=== PATIENT | female | born 1990 | race Asian ===

== ENCOUNTER 2024-01-04 10:11 | Outpatient (AMB) | payer OTHER, SELFPAY ==
[2024-01-04 10:38] VITALS: BP 126/80; PULSE 82; O2SAT 99; BMI 41.1
--- NOTE | 2024-01-04 10:38 | MHC.PC.OV ---
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 Pt states that her last PE was about 2 years ago. Pt has FACILITIES OFFICER at [facility] and her last pap was 2 months ago. Allergies No Known Allergies Allergy (Verified 01/04/24 11:00) Medication List - Last Reconciled 01/04/24 by Alisha Fay MD albuterol sulfate 90 mcg/actuation (ProAir RespiClick) 1 inh inhalation Q4-6H PRN cetirizine (All Day Allergy (cetirizine)) 10 mg PO DAILY PRN clobetasol 0.05% 1 appl topical DAILY PRN levothyroxine 25 mcg PO DAILY meclizine 12.5 mg PO BID-QID PRN metformin ER 1,000 mg PO DAILY [mingo and D chiro with Inositol w/MTHF Folate +Vitamin D3 4x capsules ] [miguel sleep PO PRN] omeprazole 20 mg PO DAILY sertraline 25 mg PO DAILY Tobacco use date assessed: 01/04/24 Dental Screening Dental Screen Date: 01/04/24 Did you have a dental visit in the last 12 months?: Yes Did you have a dental problem in the last 6 months where you did not have access to dental care?: No Was dental information given to patient?: Patient has dentist HPI 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 Currently being seen at [facility], fertility specialist for routine Pap and pelvic exam and has been followed at [facility] , Dr Raina Bro , in [place] Has been diagnosed to have prediabetes and acquired hypothyroidism, currently on metformin ER a 1000 mg once a day, and levothyroxine 25 mcg once a day in a.m. She has mild intermittent asthma, rarely needing to use her albuterol inhaler, Has eczema mainly in ankles bilaterally and hands, takes cetirizine as needed Has heartburn symptoms, takes omeprazole as needed Has generalized anxiety disorder, takes sertraline 25 mg once a day which has been helping, has been on it for a year Had her flu vaccine already given at [facility] this year [facility] Medical History (Updated 01/11/24 @ 00:16 by Alisha Fay MD) Morbid obesity with BMI of 40.0-44.9, adult PCOS (polycystic ovarian syndrome) Eczema Mild intermittent asthma History of vitamin D deficiency Impaired fasting glucose Hypothyroidism Surgical History No pertinent past surgical history Family History Father No problems noted. Mother No problems noted. Social History Housing: Apartment Patient Tobacco Use Status: Never used Tobacco e-Cigarette/Vaping Use: Never Used service: No Current occupational status: employed and unemployed Cognitive needs: No Hearing needs: No Vision needs: No Female Reproductive History Menstrual Other: Currently and sees fertility specialist in [facility] in [place]. Questionnaire PHQ-9 Over the last 2 weeks, how often have you been bothered by any of the following problems? 1. Little interest or pleasure in doing things: not at all 2. Feeling down, depressed, or hopeless: not at all 3. Trouble falling or staying asleep, or sleeping too much: not at all 4. Feeling tired or having little energy: not at all 5. Poor appetite or overeating: not at all 6. Feeling bad about yourself - or that you are a failure or have let yourself or your family down: not at all 7. Trouble concentrating on things, such as reading the newspaper or watching television: not at all 8. Moving or speaking so slowly that other people could have noticed. Or the opposite - being so fidgety or restless that you have been moving around a lot more than usual: not at all 9. Thoughts that you would be better off or of hurting yourself in some way: not at all Total score: 0 Depression Screening Interpretation: Negative Depression Screening Done: Yes 19655 - PHQ-9 Billing: Yes Source: Developed by Drs. Ari Woody, Karol Forrester, Jose Bee and colleagues, with an educational maria luisa from [employer] Thrive Questionnaire Date Thrive assessed: 01/04/24 I am a: Patient What is your living situation today?: I have a steady place to live Within the past 12 months, did the food you bought not last and you didn't have the money to get more?: I choose not to answer this question Within the past 12 months, did you worry whether your food would run out before you got money to buy more?: Never true Do you have trouble paying for medicines?: No Do you have trouble getting transportation to medical appointments?: No Do you have trouble paying your heating and electricity bill?: No Do you have trouble taking care of your child, family member or friend?: No Do you have trouble with day-to-day activities such as bathing, preparing meals, shopping, managing finances, etc.?: No Are you currently unemployed and looking for a job?: I choose not to answer this question Are you interested in more education?: I choose not to answer this question Please select the resources that you would like help with: None Currently or been in a relationship where the following occur: No concerns reported THRIVE Score: 0 AUDIT C Alcohol Use Questionnaire (AUDIT-C) 1. How often do you have a drink containing alcohol?: Monthly or less 2. How many drinks containing alcohol do you have on a typical day when you are drinking?: 1 or 2 3. How often do you have six or more drinks on one occasion?: Never Total Score: 1 MARTHA-7 AMB Questionnaire MARTHA-7 Date MARTHA - 7 assessed: 01/04/24 Feeling nervous, anxious, or on edge: 0 = Not at all Not being able to stop or control worryin = Not at all Worrying too much about different things: 0 = Not at all Trouble relaxin = Not at all Being so restless that it is hard to sit still: 0 = Not at all Becoming easily annoyed or irritable: 0 = Not at all Feeling afraid as if something awful might happen: 0 = Not at all Total MARTHA-7 score (0-4 normal; 5-9 mild; 10-14 moderate; 15-21 severe): 0 Source: Developed by Drs. Ari Woody, Jose Lawson and colleagues, with an educational maria luisa from [employer] MARTHA-7 Assessment Billing MARTHA-7 Assessment Tool: MARTHA-7 Assessment 23648 Review of Systems Const Denies body aches, Denies fatigue, Denies fever(s), Denies headache(s) and Denies weakness Eyes Denies change in vision ENT Denies dizziness, Denies headache(s), Denies nasal congestion, Denies nasal discharge and Denies sore throat Card Denies chest pain, Denies lightheadedness, Denies palpitations and Denies dyspnea Resp Denies chest congestion, Denies cough, Denies dyspnea and Denies wheezing GI Denies abdominal pain, Denies change in bowel habits and Denies heartburn Denies hematuria, Denies urinary frequency, Denies dysuria and Denies urinary urgency Musc Reports no additional complaints Skin/Breast Denies breast pain, Denies breast mass, Denies lesions and Denies rash Neuro Denies dizziness, Denies headache(s) and Denies weakness Psych Reports no additional complaints Endo Denies fatigue, Denies polydipsia, Denies polyuria and Denies palpitations Jose Alberto/Lymph Denies easy bruising Aller/Immun Denies seasonal rhinorrhea and Denies wheezing Physical exam (Primary Care) Vital Signs: Last Vital Signs Pulse 82 01/04/24 10:38 BP 126/80 01/04/24 10:38 Pulse Ox 99 01/04/24 10:38 Oxygen Delivery Method Room Air 01/04/24 10:38 BMI result Body Mass Index 41.1 Tobacco/Smoking Status: Tobacco use Status Tobacco use date assessed 01/04/24 01/04/24 10:52 Patient Tobacco Use Status Never used Tobacco 01/04/24 10:52 e-Cigarette/Vaping Use Never Used 01/04/24 10:52 PHQ-9: PHQ-9 Score PHQ-9: Total score 0 01/04/24 11:35 Depression Screening Interpretation: Negative Thrive Assessment: Date of Thrive Assessment Date Thrive assessed 01/04/24 01/04/24 10:52 Currently or been in a relationship where the following occur: No concerns reported Const General: comfortable, no acute distress and alert Nutritional Appearance: obese Orientation/consciousness: patient oriented x3 Limitations: no limitations HENMT Ears: external ears normal, TM's normal bilaterally and EAC's normal General nose exam: Normal external nose present and No nasal discharge present Mouth: Normal oral and palatal mucosa present, oropharynx normal and moist mucous membranes Eyes General: appearance normal, both eyes and all related structures Conjunctivae: conjunctivae normal Sclerae: sclerae normal Pupils: Equal, round and reactive pupils present EOM: EOMs intact bilaterally Neck Neck: Yes full ROM, Yes no lymphadenopathy and Yes supple Resp Effort & Inspection: normal respiratory effort and able to speak in complete sentences Auscultation: clear to auscultation bilaterally Cardio Rate: regular rate Rhythm: regular rhythm Heart sounds: S1 normal heart sound present and S2 normal heart sound present GI Palpation (GI): Soft to palpation, nontender and no masses Auscultation: normal bowel sounds Back/Spine/Pelvis Back: No back tenderness Skin General skin exam: no rashes or lesions noted Neuro General: patient oriented x3, gait normal, tone normal, moves all extremities, Normal light touch and pain sensation and no focal motor deficits Cranial nerves: Yes CN's II-XII intact bilaterally and Yes Equal, round and reactive pupils present Cognition (Neuro): normal cognition Extrem General: Yes full ROM, Yes no joint enlargement, Yes no clubbing, cyanosis or edema and Yes no calf tenderness Psych Appearance: grossly normal and well kempt Mental Status: mental status grossly normal Speech and movement: Normal speech and movement present Affect: normal affect Attitude: cooperative Thought process: Normal thought process present Thought content: Normal thought content present, suicidality and no homicidality Immunizations pneumoc 20-kings conj-dip cr(PF) 0.5 mL IM syringe Performing Provider: Alisha Fay MD Performing Location: [facility] Administered by: JR Aburto on 01/04/24 11:35 Dose Route Admin Location Dispensed Lot Number Expiration Date [facility] Hand Expansion Envelope Maker 0.5 mL IM Left Deltoid 0.5 mL [id number] 03/01/25 [id number] [employer] VIS Given Date VIS Provided VIS Publication Date 01/04/24 Single Vaccine 21 Eligibility Eligibility Date Funding Source Not [facility] Eligible 01/04/24 Private Coding Level of Care Code New Pt Level 4 (11835) Complex EM visit Add On G2211 Diagnoses Acquired hypothyroidism E03.9 Hypothyroidism type: acquired Impaired fasting glucose R73.01 History of vitamin D deficiency Z86.39 Mild intermittent asthma J45.20 Eczema L30.9 PCOS (polycystic ovarian syndrome) E28.2 Amenorrhea, secondary N91.1 Morbid obesity with BMI of 40.0-44.9, adult E66.01; Z68.41 Additional Codes MARTHA-7 Assessment Billing - MARTHA-7 Assessment Tool: MARTHA-7 Assessment 00398 ([id number]) Assessment & Plan Assessment & Plan (1) Hypothyroidism: Code(s): E03.9 - Hypothyroidism, unspecified Category: Medical Qualifiers: Hypothyroidism type: acquired Qualified Code(s): E03.9 - Hypothyroidism, unspecified Plan: Currently on levothyroxine 25 mcg once a day, will repeat another TSH and free T4 level (2) Impaired fasting glucose: Code(s): R73.01 - Impaired fasting glucose Category: Medical Plan: Currently on metformin ER a 1000 mg 1 tablet once a day reinforced importance of following low carb diet and getting regular exercise. Weight loss recommended (3) History of vitamin D deficiency: Code(s): Z86.39 - Personal history of other endocrine, nutritional and metabolic disease Category: Medical Plan: Will check vitamin-D level, currently takes supplements of vitamin-D3, prescribed by her OB (4) Mild intermittent asthma: Code(s): J45.20 - Mild intermittent asthma, uncomplicated Category: Medical Plan: Rarely needing to use her inhaler, has albuterol inhaler (ProAir rescue) inhaler, up-to-date with her flu vaccine, Prevnar 20 given today (5) Eczema: Code(s): L30.9 - Dermatitis, unspecified Category: Medical Plan: Currently using clobetasol 0.05% cream once a day as needed, and takes cetirizine 10 mg once a day as needed (6) PCOS (polycystic ovarian syndrome): Code(s): E28.2 - Polycystic ovarian syndrome Category: Medical Plan: Currently sees Dr. Bro at [facility], on metformin ER 1000 mg daily (7) Amenorrhea, secondary: Code(s): N91.1 - Secondary amenorrhea Plan: Has not had her period come back after she stopped taking control pills last 01/2023. Currently being followed by rec productive specialist at [facility], Dr. Bro (8) Morbid obesity with BMI of 40.0-44.9, adult: Code(s): E66.01 - Morbid (severe) obesity due to excess calories; Z68.41 - Body mass index [BMI] 40.0-44.9, adult Category: Medical Plan: Previously on wegovy 0.25 mg injected once a week, stopped taking about 2 months ago, as she is actively trying to get . Patient states that she did not have any significant weight loss while taking it. Orders: Orders Hemoglobin A1c 01/04/24 E03.9 - Hypothyroidism, unspecified, E28.2 - Polycystic ovarian syndrome, J45.20 - Mild intermittent asthma, uncomplicated, L30.9 - Dermatitis, unspecified, R73.01 - Impaired fasting glucose, Z86.39 - Personal history of other endocrine, nutritional and metabolic disease Comprehensive [place]. Panel Fast 01/04/24 E03.9 - Hypothyroidism, unspecified, E28.2 - Polycystic ovarian syndrome, J45.20 - Mild intermittent asthma, uncomplicated, L30.9 - Dermatitis, unspecified, R73.01 - Impaired fasting glucose, Z86.39 - Personal history of other endocrine, nutritional and metabolic disease Lipid Panel 01/04/24 E03.9 - Hypothyroidism, unspecified, E28.2 - Polycystic ovarian syndrome, J45.20 - Mild intermittent asthma, uncomplicated, L30.9 - Dermatitis, unspecified, R73.01 - Impaired fasting glucose, Z86.39 - Personal history of other endocrine, nutritional and metabolic disease Vitamin D 25-OH Total 01/04/24 E03.9 - Hypothyroidism, unspecified, E28.2 - Polycystic ovarian syndrome, J45.20 - Mild intermittent asthma, uncomplicated, L30.9 - Dermatitis, unspecified, R73.01 - Impaired fasting glucose, Z86.39 - Personal history of other endocrine, nutritional and metabolic disease Thyroid Stimulating Hormone 01/04/24 E03.9 - Hypothyroidism, unspecified, E28.2 - Polycystic ovarian syndrome, J45.20 - Mild intermittent asthma, uncomplicated, L30.9 - Dermatitis, unspecified, R73.01 - Impaired fasting glucose, Z86.39 - Personal history of other endocrine, nutritional and metabolic disease Free T4 (Free Thyroxine) 01/04/24 E03.9 - Hypothyroidism, unspecified, E28.2 - Polycystic ovarian syndrome, J45.20 - Mild intermittent asthma, uncomplicated, L30.9 - Dermatitis, unspecified, R73.01 - Impaired fasting glucose, Z86.39 - Personal history of other endocrine, nutritional and metabolic disease Pneumococcal 20 Immunization 01/04/24 Z23 - Encounter for immunization
== END 2024-01-04 11:40 | disposition home or self-care (01) ==
LOC: HO.HMCC 10:12
PROVIDERS: PCP Internal Medicine; Visit Provider Internal Medicine
DX: E03.9 Hypothyroidism, unspecified (principal); R73.01 Impaired fasting glucose; Z86.39 Personal history of other endocrine, nutritional and metabolic disease; J45.20 Mild intermittent asthma, uncomplicated; L30.9 Dermatitis, unspecified; E28.2 Polycystic ovarian syndrome; N91.1 Secondary amenorrhea; E66.01 Morbid (severe) obesity due to excess calories; Z68.41 Body mass index [BMI] 40.0-44.9, adult

== ENCOUNTER → 2024-01-04 10:11 | Outpatient (BNVA) | payer OTHER, SELFPAY | PROVIDERS: PCP Internal Medicine; Visit Provider Internal Medicine | DX: E03.9 Hypothyroidism, unspecified (principal); R73.01 Impaired fasting glucose; J45.20 Mild intermittent asthma, uncomplicated; L30.9 Dermatitis, unspecified; E28.2 Polycystic ovarian syndrome; N91.1 Secondary amenorrhea; E66.01 Morbid (severe) obesity due to excess calories; Z68.41 Body mass index [BMI] 40.0-44.9, adult; Z86.39 Personal history of other endocrine, nutritional and metabolic disease; Z79.84 Long term (current) use of oral hypoglycemic drugs; Z79.899 Other long term (current) drug therapy; Z23 Encounter for immunization | CPT/HCPCS: 90471; 90677; 96127 ==

== ENCOUNTER 2024-04-07 08:57 | Outpatient (REF) | payer OTHER, SELFPAY ==
--- OUTSIDE RECORDS SUMMARY | 2024-04-07 09:11 | XMS_ITS | Encounter Summary ---
Author Organization [facility] Address [address] [place] [address] Care Team Providers Care Senior Project Architect Name Role Phone Trenton Duque MD Primary Care Provider [phone] Reason for Visit * Reason Comments Medication Refill Encounter Details Date Type Department Care Team (Late st Contact Info) Description 01/17/2021 Refill AYAAN WILSON [place] [address] [phone] Cecelia Davidson MD [address] [place] [address] Medication Refill Social History Tobacco Use Types Packs/Day Years Used Date Smoking Tobacco: Never Smokeless Tobacco: Never Alcohol Use Standard Drinks/Week Comments Yes 2 (1 standard drink = 0.6 oz pur e alcohol) PHQ-2 Answer Date Recorded PHQ-2 Total Score 0 09/13/2020 Comments Unknown Sex and Gender Information Value Date Recorded Sex Assigned at Female 11/13/2019 2:35 PM EDT Legal Sex Female 8:57 AM EDT Gender Identity Female 11/13/2019 2:35 PM EDT Sexual Orientation Straight 11/13/2019 2: 35 PM EDT documented as of this encounter Miscellaneous Notes * Telephone Encounter - Melita Lancaster RN - 01/17/2021 3:20 PM EST You have been prescribing this documented in this encounter Plan of Treatment Not on file documented as of this encounter Visit Diagnoses Not on filedocumented in this encounter Additional Health Concerns Assessment Noted Time PHQ-9 Depression Total Score: 0 09/14/19 21 9:35 AM EDT documented as of this encounter Care Teams Senior Project Architect Relationship Specialty Start Date End Date Trenton Duque MD [address] [facility] [address] [place] [phone] PCP - General Internal Medicine 11/10/19 04/07/22 documented as of this encounter
--- OUTSIDE RECORDS SUMMARY | 2024-04-07 09:11 | XMS_ITS | Encounter Summary ---
Author Organization [facility] Address [address] [place] [address] Care Team Providers Care Robotic Machine Tender Production Name Role Phone Trenton Duque MD Primary Care Provider [phone] Reason for Referral * Imaging (Routine) - Closed Specialty Diagnoses / Procedures Referred By Contac t Referred To Contact Diagnostic Radiology Procedures Non OB Transvaginal External, Provider Referral ID Status Reason Start Date Expiration Date Visits Re quested Visits Authorized [id number] Closed 12/12/2019 12/11/2020 1 1 Encounter Details Date Type Department Care Team (Late st Contact Info) Description 12/12/2019 Scanned Document [facility] Internal [facility] [address] [id number] External, Provider Social History Tobacco Use Types Packs/Day Years Used Date Smoking Tobacco: Never Assessed Comments Unknown Sex and Gender Information Value Date Recorded Sex Assigned at Female 11/13/2019 2:35 PM EDT Legal Sex Female 8:57 AM EDT Gender Identity Female 11/13/2019 2:35 PM EDT Sexual Orientation Straight 11/13/2019 2: 35 PM EDT COVID-19 Exposure Response Date Recorded In the last month, have you been in contact with someone who was confirmed or suspected to have Coronavirus / COVID-19? No / Unsure 11/14/2019 3:37 PM EDT documented as of this encounter Plan of Treatment Not on file documented as of this encounter Procedures Procedure Name Priority Date/Time Associated Diagnosis Comments NON OB TRANSVAGINAL Routine 12/12/2019 documented in this encounter Results * Non OB Transvaginal (12/12/2019) Anatomical Region Laterality Modality Pelvis, RCC Abdomen/Pelvis Ultra sound us Provider External IMG US ORDERABLES Final Result documented in this encounter Visit Diagnoses Not on filedocumented in this encounter Additional Health Concerns Infection Onset Date Last Indicated Resolved Time R/O COVID-19 03/16/2020 03/16/2020 03/19/2020 3:29 AM EST documented as of this encounter Care Teams Robotic Machine Tender Production Relationship Specialty Start Date End Date Trenton Duque MD [address] [address] PCP - General Internal Medicine 11/10/19 04/07/22 documented as of this encounter
--- OUTSIDE RECORDS SUMMARY | 2024-04-07 09:11 | XMS_ITS | Encounter Summary ---
Author Organization [facility] Address [address] [place] [address] Care Team Providers Care Collection Advisor Name Role Phone Trenton Duque MD Primary Care Provider [phone] Reason for Visit * Reason Comments Medication Refill Encounter Details Date Type Department Care Team (Late st Contact Info) Description 04/27/2020 Refill [facility] Internal Medicine [place] [address] [phone] Trenton Duque MD [address] [facility] [address] [place] [address] Medication Refill Social History Tobacco Use Types Packs/Day Years Used Date Smoking Tobacco: Never Smokeless Tobacco: Never Alcohol Use Standard Drinks/Week Comments Yes 2 (1 standard drink = 0.6 oz pur e alcohol) Comments Unknown Sex and Gender Information Value Date Recorded Sex Assigned at Female 11/13/2019 2:35 PM EDT Legal Sex Female 8:57 AM EDT Gender Identity Female 11/13/2019 2:35 PM EDT Sexual Orientation Straight 11/13/2019 2: 35 PM EDT documented as of this encounter Miscellaneous Notes * Telephone Encounter - Indira Rivas - 04/27/2020 8:20 AM EST Last visit 04/24/2020; appointment 05/2020 documented in this encounter Plan of Treatment Not on file documented as of this encounter Visit Diagnoses Not on filedocumented in this encounter Care Teams Collection Advisor Relationship Specialty Start Date End Date Trenton Duque MD [address] [facility] [address] [place] [phone] PCP - General Internal Medicine 11/10/19 04/07/22 documented as of this encounter
--- OUTSIDE RECORDS SUMMARY | 2024-04-07 09:11 | XMS_ITS | Clinical Summary ---
Author Organization [place] [facility] Address [address] [place] [address] Phone Care Team Providers Care Landfill Grader Name Role Phone Unavailable Primary Care Provider Unavailabl e Allergies No known active allergies Medications clobetasoL (TEMOVATE) 0.05 % ointment Apply topically as needed. Active ciclesonide (ALVESCO) 160 mcg/actuation inhaler Active ATOPICLAIR Crea APPLY 1 DOSE TOPICALLY 2 (TWO) TIMES DAILY. 100 g 2 Active PROAIR HFA 90 mcg/actuation HFA aerosol inhaler INHALE 1 PUFF INTO THE LUNGS EVERY 4 HOURS NEEDED FOR WHEEZING. 6.7 g 3 2 Active neomycin-polymy judi-hydrocortis one (CORTISPORIN) 3.5-10,000-1 mg/mL-unit/mL-% otic suspension 1 Active fluconazole (DIFLUCAN) 150 mg tablet TAKE 1 TABLET BY MOUTH ONCE. MAY TAKE 2ND PILL 2 DAYS LATER IF SYMPTOMS PERSIST 2 Active TRI-ESTARYLLA 0.18/0.215/0.25 mg-35 mcg (28) tablet TAKE 1 TABLET BY MOUTH EVERY DAY 84 tablet 4 Active Active Problems Problem Noted Date Diagnosed Date Obesity (BMI 30.0-34.9) 04/25/2020 Abnormality of hormone 04/03/2020 Overview (04/03/2020): High testosterone High estradiol High DHEAs- put on OCP- for f/u labs late apr 2020 Other specified hypothyroidism 11/10/2019 Asthma, unspecified asthma s everity, unspecified whether complicated, unspecified whether persistent 11/10/2019 Encounters Date Type Department Care Team Description 03/09/2024 Refill [facility] [place] [address] [place] [address] Cecelia Davidson MD Medication Refill 03/05/2024 Refill [facility] [place] [address] [place] [address] Cecelia Davidson MD Medication Refill from Last 3 Months Immunizations Name Administration Dates Next Due COVID-19 Vaccine - PFIZER 06/25/2020,06/04/2020 COVID-19, MODERNA 12Y+, 0.5 mL 01/16/2021 Influenza, MDCK, trivalent, injectable, preservative free 12/05/2023 Influenza, injectable, MDCK, quad, preservative free 01/11/2023 influenza, injectable, quadr ivalent, preservative free, pediatric 02/05/2022 Social History Tobacco Use Types Packs/Day Years Used Date Smoking Tobacco: Never Smokeless Tobacco: Never Tobacco Cessation:Counseling Given: Not Answered Alcohol Use Standard Drinks/Week Comments Yes 2 (1 standard drink = 0.6 oz pur e alcohol) PHQ-2 Answer Date Recorded PHQ-2 Total Score 0 10/16/2022 Comments Unknown Sex and Gender Information Value Date Recorded Sex Assigned at Female 11/13/2019 2:35 PM EDT Legal Sex Female 8:57 AM EDT Gender Identity Female 11/13/2019 2:35 PM EDT Sexual Orientation Straight 11/13/2019 2: 35 PM EDT Last Filed Vital Signs Vital Sign Reading Time Taken Comments Blood Pressure 112/68 10/16/2022 2:40 PM EDT Pulse 91 10/16/2022 2:40 PM EDT Temperature - - Respiratory Rate 18 10/16/2022 2:40 PM EDT Oxygen Saturation 99% 10/16/2022 2:40 PM EDT Inhaled Oxygen Concentration - - Weight 105.1 kg (231 lb 9.6 oz) 10/16/2022 2:40 PM EDT Height 160 cm (5' 3 ) 10/16/2022 2:40 PM EDT Body Mass Index 41.03 10/16/2022 2:40 PM EDT Plan of Treatment Health Maintenance Due Date Last Done Comments Pneumococcal Vaccine (1 of 2 - PCV) 1994 HIV screening 2001 Hepatitis C screening 2006 Tetanus adult (Td q 10,TDAP once) 2008 Covid-19 vaccine series ( season) 2023 01/16/2021, 06/25/2020, 06/04/2020 Cervical cancer screening 10/17/20272022, 05/23/2021, 12/26/2019, Additional history exists RSV Discussion (1 - 1-dose 75+ series) 06/27/2063 Influenza vaccine Completed 12/05/2023, , 02/05/2022 Meningococcal Vaccine Aged Out No kirt lalit eligible based on patient's age to complete this topic Procedures Procedure Name Priority Date/Time Associated Diagnosis Comments CYTOLOGY CONTINUOUS VULCANIZING MACHINE OPERATOR CASES (GH LMW) Routine 10/16/2022 3:07 PM EDT Well woman exam with routine gynecological exam from Last 3 Months or Most Recently Relevant to Health Maintenance Results * Cytology Electromagnet Crane Operator (GH LMW) (10/16/2022 3:07 PM EDT) Case Report Cytology Electromagnet Crane Operator ?Case: [id number] ? Authorizing Provider: ??Cecelia Davidson MD ?? Collected: ? 10/16/2022 03:07 PM ? Ordering Location: ? [facility] ? Received: ?10/17/2022 11:08 AM ? First Screen: ?Suly Brooke [place] ? (ASCP) ? Specimen: ?SurePath Pap Test, Cervix/Endocervix ? 3 7:15 AM [facility] Specimen Source Cervix/Endocervix 3 7:15 AM [facility] Specimen Adequacy Satisfactory. Endocervical transformation zone component is not identified. 3 7:15 AM [facility] Interpretation Negative for intraepithelial lesion or malignancy. 3 7:15 AM [facility] This electronic signature indicates that the pathologist has personally reviewed the available gross and/or microscopic material and has based the diagnosis on that review. 3 7:15 AM [facility] Clinical History Routine 10/22/19 2 3 7:15 AM [facility] Plant Safety Engineer Signature Suly Brooke CT (ASCP) 3 7:15 AM [facility] Pap and HPV Result History [id number]: Negative for intraepithelial lesion or malignancy. HPV: [id number]: Not Detected 3 7:15 AM [facility] LMP 06/2022 3 7:15 AM EDT [facility] Specimen Processing Information SurePath specimen processed, slide stained and manually screened at this location. The Pap smear is a screening test designed to aid in the detection of premalignant and malignant conditions of the uterine cervix. It is not a diagnostic procedure and should not be used as the sole means of detecting cervical cancer. Both false-positive and false-negative reports do occur. 3 7:15 AM EDT [facility] Pathology Department [facility] PATHOLOG[facility] [address] [place] [address] Director: Erma Chow M.D. [place]: [id number] [place]: [id number] CLIA: [id number] 3 7:15 AM EDT [facility] PATHOLOGY Papanicolaou smear specimen (specimen) CERVIX UTERI STRUCTURE / Unknown 10/16/2022 3:07 PM EDT 10/17/2022 11:08 AM EDT us Cecelia Davidson MD PATHOLOGY/CYTOLOGY ORDERA BLES Final Result [facility] DEPARTMENT OF PATHOLOGY [address] [place] [address], [facility] [phone] from Last 3 Months or Most Recently Relevant to Health Maintenance Insurance MEDICAID [place] * Guarantor: Julia Salazar Account Type Relation to Patient Date of Phone Billing Address Personal/Family Self 1990 [address] [place] [address] [place] * Guarantor: Julia Salazar Account Type Relation to Patient Date of Phone Billing Address Personal/Family Self 1990 [address] [place] [address] [place]
--- OUTSIDE RECORDS SUMMARY | 2024-04-07 09:11 | XMS_ITS | Encounter Summary ---
Author Organization [facility] Address [address] [place] [address] Care Team Providers Care Electric Motor Assembler And Tester Name Role Phone Trenton Duque MD Primary Care Provider [phone] [phone] Reason for Visit * Reason Onset Date Comments Medication Refill 09/19/2020 Encounter Details Date Type Department Care Team (Late st Contact Info) Description 09/19/2020 Refill [facility] Internal Medicine [place] [address] [place], [place] [phone] Trenton Duque MD [address] [facility] [address] [place] [address] Medication Refill Social History Tobacco [...] documented as of this encounter Care Teams Electric Motor Assembler And Tester Relationship Specialty Start Date End Date Trenton Duque MD [address] [facility] [address] [place] [address] PCP - General Internal Medicine 11/10/19 04/07/22 documented as of this encounter
--- OUTSIDE RECORDS SUMMARY | 2024-04-07 09:11 | XMS_ITS | Encounter Summary ---
Author Organization [facility] Address [address] [place] [phone] Care Team Providers Care Risk Developer Name Role Phone Unavailable Primary Care Provider Unavailabl e Reason for Visit * Reason Onset Date Comments Medication Refill 05/02/2022 Encounter Details Date Type Department Care Team (Late st Contact Info) Description 05/02/2022 Refill [facility] [place] [address] [place] [phone] Cecelia Davidson MD [address] [place] [address] Medication Refill Social History Tobacco [...] encounter Miscellaneous Notes * Telephone Encounter - Cecelia Davidson MD - 05/03/2022 2:31 PM EST Didn't write Rx. Has not been seen in awhile documented in this encounter Plan of Treatment Not on file documented as of this encounter Visit Diagnoses Not on filedocumented in this encounter Additional Health Concerns Assessment Noted Time PHQ-9 Depression Total Score: 0 09/14/19 21 9:35 AM EDT documented as of this encounter
--- OUTSIDE RECORDS SUMMARY | 2024-04-07 09:11 | XMS_ITS | Encounter Summary ---
Author Organization [facility] Address [address] [place] [address] Care Team Providers Care Construction Recruiter Name Role Phone Trenton Duque MD Primary Care Provider +1 [phone] Reason for Visit * Reason Comments Medication Refill Encounter Details Date Type Department Care Team (Late st Contact Info) Description 03/13/2020 Refill [facility] Internal Medicine [place] [address] [place] [address] [place] [address] [place] [phone] Trenton Duque MD [address] [place] [address] [place] [address] Medication Refill Social History Tobacco [...] * Telephone Encounter - Indira Rivas - 03/13/2020 8:29 AM EST Last visit 12/15/2019; appointment 03/29/2020 documented in this encounter Plan of Treatment Not on file documented as of this encounter Visit Diagnoses Not on filedocumented in this encounter Additional Health Concerns Infection Onset Date Last Indicated Resolved Time R/O COVID-19 03/16/2020 03/16/2020 03/19/2020 3:29 AM EST documented as of this encounter Care Teams Construction Recruiter Relationship Specialty Start Date End Date Trenton Duque MD [address] [place] [facility] 100 [place] [phone] PCP - General Internal Medicine 11/10/19 04/07/22 documented as of this encounter
--- OUTSIDE RECORDS SUMMARY | 2024-04-07 09:11 | XMS_ITS | Encounter Summary ---
Author Organization [facility] Address [address] [place] [address] Care Team Providers Care Configuration Management Consultant Name Role Phone Trenton Duque MD Primary Care Provider [phone] [phone] Reason for Visit * Reason Comments Medication Refill Encounter Details Date Type Department Care Team (Late st Contact Info) Description 01/18/2021 Refill [facility] Internal Medicine [place] [address] [place], [place] [phone] Trenton Duque MD [address] [place] [address] [place] [address] Medication Refill Social History Tobacco [...] encounter Miscellaneous Notes * Telephone Encounter - Dena Fairchild - 01/18/2021 7:37 AM EST Message from the University Extension Specialist - MEDICATION REFILLS Time of Call: 7:37 AM Confirmed w/ Patient Preferred Pharmacy: [id number] [place], [place] - [address] [facility] Last office visit: 09/10/2020 Next office visit: Visit date not found Please give us 24 hours to respond to your request. Patient was reminded to contact their preferred pharmacy for further electronic refills. Patient was encouraged to set up a [employer] account to request electronic refills in the future. Forward this message to LIN Spangler. documented in this encounter Plan of Treatment Not on file documented as of this encounter Visit Diagnoses Diagnosis Pain of lower extremity, unspecified laterality Back pain, unspecified back location, unspecified back pain laterality, unspecified chronicity documented in this encounter Additional Health Concerns Assessment Noted Time PHQ-9 Depression Total Score: 0 09/14/19 21 9:35 AM EDT documented as of this encounter Care Teams Configuration Management Consultant Relationship Specialty Start Date End Date Trenton Duque MD [address] [facility] 100 [place] [phone] PCP - General Internal Medicine 11/10/19 04/07/22 documented as of this encounter
--- OUTSIDE RECORDS SUMMARY | 2024-04-07 09:11 | XMS_ITS | Encounter Summary ---
Author Organization [facility] Address [address] [place] [address] Care Team Providers Care Accounting Coordinator Name Role Phone Trenton Duque MD Primary Care Provider [phone] [phone] Reason for Visit * Reason Comments Medication Refill Encounter Details Date Type Department Care Team (Late st Contact Info) Description 04/04/2020 Refill [place] [facility] [place] [address] [place] [address] Cecelia Davidson MD [address] [place] [address] Medication Refill Social History Tobacco [...] on filedocumented in this encounter Care Teams Accounting Coordinator Relationship Specialty Start Date End Date Trenton Duque MD [address] [facility] 100 [place] [address] PCP - General Internal Medicine 11/10/19 04/07/22 documented as of this encounter
--- OUTSIDE RECORDS SUMMARY | 2024-04-07 09:11 | XMS_ITS | Encounter Summary ---
Author Organization [facility] Address [address] [place] [address] Care Team Providers Care Crossbow Maker Name Role Phone Trenton Duque MD Primary Care Provider [phone] [phone] Reason for Visit * Reason Onset Date Comments Medication Refill 09/19/2020 Encounter Details Date Type Department Care Team (Late st Contact Info) Description 09/19/2020 Refill [place] [facility] [place] [address] [place] [phone] Cecelia Davidson MD [address] [place] [address] Medication Refill Social History Tobacco [...] documented as of this encounter Care Teams Crossbow Maker Relationship Specialty Start Date End Date Trenton Duque MD [address] [facility] [address] [place] [phone] PCP - General Internal Medicine 11/10/19 04/07/22 documented as of this encounter
--- OUTSIDE RECORDS SUMMARY | 2024-04-07 09:11 | XMS_ITS | Encounter Summary ---
Author Organization [facility] Address [address] [place] [address] Care Team Providers Care Beekeeper Farmer Name Role Phone Unavailable Primary Care Provider Unavailabl e Reason for Visit * Reason Comments Medication Refill Encounter Details Date Type Department Care Team (Late st Contact Info) Description 12/30/2022 Refill [facility] Internal Medicine [place] [address] [place] [address] Trenton Duque MD [address] [facility] 100 [place] [address] Medication Refill Social History Tobacco Use Types [...] Noted Time PHQ-9 Depression Total Score: 0 10/17/19 23 2:43 PM EDT documented as of this encounter
--- OUTSIDE RECORDS SUMMARY | 2024-04-07 09:11 | XMS_ITS | Encounter Summary ---
Author Organization [facility] Address [address] [place] [address] Care Team Providers Care Wet Pan Operator Name Role Phone Unavailable Primary Care Provider Unavailabl e Reason for Visit * Reason Comments Medication Refill Encounter Details Date Type Department Care Team (Late st Contact Info) Description 03/09/2024 Refill NE OBGYN [place] [address] [place], [place] [phone] Cecelia Davidson MD [address] [place] [address] Medication Refill Social History Tobacco Use Types [...] Telephone Encounter - Cecelia Davidson MD - 03/09/2024 12:40 PM EST Last seen 10/22. Was told 12/23 needs appt none sched documented in this encounter Plan of Treatment Not on file documented as of this encounter Visit Diagnoses Not on filedocumented in this encounter Additional Health Concerns Assessment Noted Time PHQ-9 Depression Total Score: 0 10/17/19 23 2:43 PM EDT documented as of this encounter
--- OUTSIDE RECORDS SUMMARY | 2024-04-07 09:11 | XMS_ITS | Encounter Summary ---
Author Organization [facility] Address [address] [place] [address] Care Team Providers Care Terrazzo Layer Name Role Phone Trenton Duque MD Primary Care Provider +1 [phone] Encounter Details Date Type Department Care Team (Latest Contact Info) Description 09/13/2020 Transcribed Orders [facility] [address] [place] [address] Cecelia Davidson MD [address] [place] [address] Routine general medical examination at a health care facility (Primary Dx) Social History Tobacco Use Types Packs/Day Years [...] on file documented as of this encounter Results * Testosterone free and total with SHBG (BH GH L LMW YH) (09/13/2020 5:45 PM EDT) Testosterone, Total 163 See Comment ng/dL 09/13/2020 8:05 PM [facility] DEPARTMENT OF PATHOLOGY Comment: Females: Premenopause: 21 - 60 Years Old ? 9 - 48 ng/dL Postmenopause: >=45 Years Old ?<7 - 46 ng/dL Sex Hormone Binding Globulin 69 See Comment nmol/L 09/13/2020 8:05 PM [facility] DEPARTMENT OF PATHOLOGY Comment: Females: Premenopause: 21 - 60 Years Old ? 11 - >180 nmol/L Postmenopause: >=45 Years Old ?23 - 159 nmol/L Free Testosterone Index 8.19 See Comment Index 09/13/2020 8:05 PM [facility] DEPARTMENT OF PATHOLOGY Comment: Females: Premenopause: 21 - 60 Years Old ?0.27 - 7.64 Index Postmenopause: >=45 Years Old ? 0.17 - 4.15 Index Blood Venipuncture / Unknown 09/13/2020 5:45 PM EDT 09/13/2020 5:46 PM EDT us Cecelia Davidson MD LAB BLOOD ORDERABLES Clarissa l Result [facility] DEPARTMENT OF PATHOLOGY [address] [place] [address] documented in this encounter Visit Diagnoses Diagnosis Routine general medical examination at a health care facility- Primary documented in this encounter Additional Health Concerns Assessment Noted Time PHQ-9 Depression Total Score: 0 09/14/19 9:35 AM EDT documented as of this encounter Care Teams Terrazzo Layer Relationship Specialty Start Date End Date Trenton Duque MD [address] [place] [address] [place] [address] PCP - General Internal Medicine 11/10/19 04/07/22 documented as of this encounter
--- OUTSIDE RECORDS SUMMARY | 2024-04-07 09:11 | XMS_ITS | Encounter Summary ---
Author Organization [facility] Address [address] [place] [address] Care Team Providers Care Ammonium Sulfate Operator Name Role Phone Trenton Duque MD Primary Care Provider +1 -[phone] Reason for Visit * Reason Comments Medication Refill Encounter Details Date Type Department Care Team (Late st Contact Info) Description 03/16/2021 Refill N[facility] Internal Medicine [place] [address] [place] [phone] Trenton Duque MD [address] [facility] 100 [place] [address] Medication Refill Social History Tobacco [...] documented as of this encounter Care Teams Ammonium Sulfate Operator Relationship Specialty Start Date End Date Trenton Duque MD [address] [facility] [address] [place] [phone] PCP - General Internal Medicine 11/10/19 04/07/22 documented as of this encounter
--- OUTSIDE RECORDS SUMMARY | 2024-04-07 09:11 | XMS_ITS | Encounter Summary ---
Author Organization [facility] Address [address] [place] [address] Care Team Providers Care Stars Coordinator Name Role Phone Trenton Duque MD Primary Care Provider +1 -[phone] Reason for Visit * Reason Onset Date Comments Medication Refill 12/19/2020 Encounter Details Date Type Department Care Team (Late st Contact Info) Description 12/19/2020 Refill [facility] Internal Medicine [place] [address] [place] [address] [place], [place] [phone] Trenton Duque MD [address] [facility] [facility] [address] [place] [address] Medication Refill Social History Tobacco [...] documented as of this encounter Care Teams Stars Coordinator Relationship Specialty Start Date End Date Trenton Duque MD [address] [facility] [address] [place] [address] PCP - General Internal Medicine 11/10/19 04/07/22 documented as of this encounter
--- OUTSIDE RECORDS SUMMARY | 2024-04-07 09:11 | XMS_ITS | Encounter Summary ---
Author Organization [facility] Address [address] [place] [phone] Care Team Providers Care Veterinary Science Teacher Name Role Phone Trenton Duque MD Primary Care Provider +1 -[phone] Encounter Details Date Type Department Care Team (Late st Contact Info) Description 03/16/2020 Lab Requisition [place] [facility] [address] [place] [address] Darian iY MD [address] [place] [phone] Encounter for screening for other viral diseases Social History Tobacco Use Types Packs/Day Years [...] Procedure Name Priority Date/Time Associated Diagnosis Comments SARS COV-2 (COVID-19) RNA-[facility] ([facility]) Routine 03/16/2020 8:55 PM EST Encounter for screening for other viral diseases documented in this encounter Results * SARS CoV-2 (COVID-19) [facility] (Healthcare Worker) (BH GH LMW YH) (03/16/2020 8:55 PM EST) SARS-CoV-2 Specimen Source Nasopharynx 03/19/2020 2:26 AM [facility] SARS-CoV-2 Patient Race Unknown 03/19/2020 2:26 AM [facility] SARS-CoV-2 Patient Ethnicity Unknown 03/19/2020 2:26 AM [facility] SARS-CoV-2 RNA [place] Undetected Undetected 03/19/2020 2:26 AM [facility] Comment: SARS-CoV-2 RNA absent. This result does not rule out COVID-19 in the patient, as the sensitivity of the test depends on the timing of the specimen collection and the quality of the specimen. Result should be correlated with patient's history and clinical presentation. SARS-CoV-2 Method Summary SEE COMMENTS 03/19/2020 2:26 AM [facility] Comment: PREETHI- This PCR test uses the preethi SARS-CoV-2 assay ([employer] and is performed on the preethi BalconyTV0 System. It has received Emergency Use Authorization (EUA) by the U.S. Food and Drug Administration. Performance characteristics were verified by [facility] in a manner consistent with CLIA requirements. Fact sheets for this Emergency Use Authorization (EUA) can be found at the following links: https://www.fda.gov/media/082943/download for Healthcare Providers https://www.fda.gov/media/757744/download for Patients Test Performed by: [facility] [place] [address] Summer Counselor: Robert Mata M.D. Ph.D.; CLIA# [id number] Viral NASOPHARYNGEAL STRUCTURE / Unknown 03/16/2020 8:55 PM EST 03/16/2020 8:55 PM EST Darian Yi MD MICROBIOLOGY - GENERAL ORD ERABLES Final Result [facility] documented in this encounter Visit Diagnoses Diagnosis Encounter for screening for other viral diseases documented in this encounter Additional Health Concerns Infection Onset Date Last Indicated Resolved Time R/O COVID-19 03/16/2020 03/16/2020 03/19/2020 3:29 AM EST documented as of this encounter Care Teams Veterinary Science Teacher Relationship Specialty Start Date End Date Trenton Duque MD [address] [facility] 100 [place] [phone] PCP - General Internal Medicine 11/10/19 04/07/22 documented as of this encounter
--- OUTSIDE RECORDS SUMMARY | 2024-04-07 09:11 | XMS_ITS | Encounter Summary ---
Author Organization [facility] Address [address] [place] [address] Care Team Providers Care Automation Engineer Name Role Phone Unavailable Primary Care Provider Unavailabl e Reason for Visit * Reason Onset Date Comments Medication Refill 05/02/2022 Encounter Details Date Type Department Care Team (Late st Contact Info) Description 05/02/2022 Refill [facility] Internal [facility] [place] [address] [place] [address] Trenton Duque MD [address] [facility] [address] [place] [phone] Medication Refill Social History Tobacco Use Types [...]
--- OUTSIDE RECORDS SUMMARY | 2024-04-07 09:11 | XMS_ITS | Encounter Summary ---
Author Organization [facility] Address [address] [place] [address] Care Team Providers Care Web Production Designer Name Role Phone Trenton Duque MD Primary Care Provider + [phone] Reason for Visit * Reason Comments Medication Refill Encounter Details Date Type Department Care Team (Late st Contact Info) Description 07/31/2020 Refill [facility] Internal Medicine [place] [address] [place] [phone] Trenton Duque MD [address] [address] Medication Refill Social History Tobacco Use [...] on filedocumented in this encounter Care Teams Web Production Designer Relationship Specialty Start Date End Date Trenton Duque MD [address] [place] [address] [place] [address] PCP - General Internal Medicine 11/10/19 04/07/22 documented as of this encounter
--- OUTSIDE RECORDS SUMMARY | 2024-04-07 09:11 | XMS_ITS | Encounter Summary ---
Author Organization [facility] Address [address] [place] [address] Care Team Providers Care Flatwork Feeder Name Role Phone Unavailable Primary Care Provider Unavailabl e Reason for Visit * Reason Comments Med Change Request Encounter Details Date Type Department Care Team (Late st Contact Info) Description 04/16/2023 Refill [facility] [place] [address] [place] [address] Cecelia Davidson MD [address] [place] [address] Med Change Request Social History Tobacco Use Types Packs/Day Years [...] Telephone Encounter - Cecelia Davidson MD - 12/11/2023 2:41 PM EDT I called in 3 mo of meds. Needs an annual appt. Please call pt to schedule annual. I can not call in more until she is seen * Telephone Encounter - Muriel Nails - 04/17/2023 1:55 PM EST Scanned documented in this encounter Plan of Treatment Not on file documented as of this encounter Visit Diagnoses Not on filedocumented in this encounter Additional Health Concerns Assessment Noted Time PHQ-9 Depression Total Score: 0 10/17/19 23 2:43 PM EDT documented as of this encounter
--- OUTSIDE RECORDS SUMMARY | 2024-04-07 09:11 | XMS_ITS | Encounter Summary ---
Author Organization [facility] Address [address] [place] [address] Care Team Providers Care Professor/Nurse Anesthetist Name Role Phone Trenton Duque MD Primary Care Provider [phone] [phone] Reason for Visit * Reason Comments Medication Refill Encounter Details Date Type Department Care Team (Late st Contact Info) Description 03/06/2020 Refill NE [facility] [place] [address] [place] [phone] Cecelia Davidson MD [address] [place] [address] Medication Refill Social History Tobacco [...] documented as of this encounter Care Teams Professor/Nurse Anesthetist Relationship Specialty Start Date End Date Trenton Duque MD [address] [facility] 100 [place] [address] PCP - General Internal Medicine 11/10/19 04/07/22 documented as of this encounter
--- OUTSIDE RECORDS SUMMARY | 2024-04-07 09:11 | XMS_ITS | Encounter Summary ---
Author Organization [facility] Address [address] [place] [address] Care Team Providers Care Women Nurse Name Role Phone Unavailable Primary Care Provider Unavailabl e Encounter Details Date Type Department Care Team (Late st Contact Info) Description 04/17/2023 Scanned Document NE OBN [place] [address] [place] [address] Cecelia Davidson MD [address] [place] [address] Social History Tobacco Use Types Packs/Day Years [...]
--- OUTSIDE RECORDS SUMMARY | 2024-04-07 09:11 | XMS_ITS | Encounter Summary ---
Author Organization [facility] Address [address] [place] [address] Care Team Providers Care Carbon Brusher Assembler Name Role Phone Trenton Duque MD Primary Care Provider [phone] [phone] Reason for Visit * Reason Comments Med Change Request Encounter Details Date Type Department Care Team (Late st Contact Info) Description 09/24/2021 Refill NE OBGYN [place] [address] [place] [address] Cecelia Davidson MD [address] [place] [address] Med Change Request Social History [...] documented as of this encounter Care Teams Carbon Brusher Assembler Relationship Specialty Start Date End Date Trenton Duque MD [address] [facility] [address] [place] [address] PCP - General Internal Medicine 11/10/19 04/07/22 documented as of this encounter
--- OUTSIDE RECORDS SUMMARY | 2024-04-07 09:11 | XMS_ITS | Encounter Summary ---
Author Organization [facility] Address [address] [place] [address] Care Team Providers Care Door Assembler Name Role Phone Trenton Duque MD Primary Care Provider [phone] [phone] Reason for Visit * Reason Comments Medication Refill Encounter Details Date Type Department Care Team (Late st Contact Info) Description 11/16/2020 Refill NE STEVE [place] [address] [place] [phone] eCcelia Davidson MD [address] [place] [phone] Medication Refill Social History Tobacco Use Types [...] documented as of this encounter Care Teams Door Assembler Relationship Specialty Start Date End Date Trenton Duque MD [address] [facility] [address] [place] [address] PCP - General Internal Medicine 11/10/19 04/07/22 documented as of this encounter
--- OUTSIDE RECORDS SUMMARY | 2024-04-07 09:11 | XMS_ITS ---
Author Name [facility] Organization Unknown History of Medication Use Medication Directions Dispensed Refills Start Date End Date Stat WegovyTakeNo date re cordedNo form recordedNo frequency recordedNo route recordedNo set duration recordedNo set duration amount recordedactiveNo dosage strength recordedNo dosage strength units of measure recorded active Problems Problem Status Onset Date Problem Type Date of Resoluti on Source Other asthma active ProblemAct [facility]_PHY SONE Pain in unspecified foot active 2023-06-12 Problem[address] [facility]_PHYSONE
--- OUTSIDE RECORDS SUMMARY | 2024-04-07 09:11 | XMS_ITS | Encounter Summary ---
Author Organization [facility] Address [address] [place] [address] Care Team Providers Care Auditing Clerk Name Role Phone Trenton Duque MD Primary Care Provider +1 [phone] Encounter Details Date Type Department Care Team (Late st Contact Info) Description 09/10/2020 Orders Only [facility] [address] [place] [address] Cecelia Davidson MD [address] [place] [address] Hypouricemia (Primary Dx) Social History Tobacco Use Types [...] documented as of this encounter Results * TSH Receptor binding antibody (TRAB) (BH GH LMW Q YH) (05/21/2021 1:59 PM EDT) Thyrotropin Receptor Ab <1.00 <=2.00 IU/L 05/25/2021 9:40 PM EDT [facility] Comment: This test was performed using the TRAb Antibody HI method which is standardized against the 1st International Standard 90/672 and is reported in International Units (IU/L). The reference range reported was established specifically for this test method. Test Performed at: [facility] [address] ??[id number] Nathan Slater M.D., Ph.D.,Director of Laboratories Blood Venipuncture / Unknown 05/21/2021 1:59 PM EDT 05/21/2021 1:59 PM EDT us Cecelia Davidson MD LAB BLOOD ORDERABLES Clarissa pedro Result [facility] documented in this encounter Visit Diagnoses Diagnosis Hypouricemia- Primary Other abnormal blood chemistry documented in this encounter Additional Health Concerns Assessment Noted Time PHQ-9 Depression Total Score: 0 09/11/19 21 12:02 PM EDT documented as of this encounter Care Teams Auditing Clerk Relationship Specialty Start Date End Date Trenton Duque MD [address] [facility] [address] [place] [phone] PCP - General Internal Medicine 11/10/19 04/07/22 documented as of this encounter
--- OUTSIDE RECORDS SUMMARY | 2024-04-07 09:11 | XMS_ITS | Encounter Summary ---
Author Organization [facility] Address [address] [place] [address] Care Team Providers Care Insurance Producer Name Role Phone Unavailable Primary Care Provider Unavailabl e Encounter Details Date Type Department Care Team (Late st Contact Info) Description 04/17/2023 Scanned Document NE OBN [place] [address] [place] [address] Cecelia Davidson MD [address] [place] [address] Social History Tobacco Use Types [...]
--- OUTSIDE RECORDS SUMMARY | 2024-04-07 09:11 | XMS_ITS | Encounter Summary ---
Author Organization [facility] Address [address] [place] [address] Care Team Providers Care Configuration Management Manager Name Role Phone Trenton Duque MD Primary Care Provider [phone] [phone] Reason for Visit * Reason Onset Date Comments Medication Refill 06/08/2020 Encounter Details Date Type Department Care Team (Late st Contact Info) Description 06/08/2020 Refill NE STEVE [place] [address] [place] [address] Cecelia Davidson MD [address] [place] [address] Medication Refill Social History Tobacco [...] on filedocumented in this encounter Care Teams Configuration Management Manager Relationship Specialty Start Date End Date Trenton Duque MD [address] [address] PCP - General Internal Medicine 11/10/19 04/07/22 documented as of this encounter
--- OUTSIDE RECORDS SUMMARY | 2024-04-07 09:11 | XMS_ITS | Encounter Summary ---
Author Organization [facility] Address [address] [place] [address] Care Team Providers Care Medical Laboratory Technical Officer Name Role Phone Trenton Duque MD Primary Care Provider + -[phone] Reason for Visit * Reason Comments Medication Refill Encounter Details Date Type Department Care Team (Late st Contact Info) Description 07/31/2020 Refill [facility] Internal Medicine [place] [address] [place] [phone] Trenton Duque MD [address] [address] Medication Refill Social History Tobacco [...] on filedocumented in this encounter Care Teams Medical Laboratory Technical Officer Relationship Specialty Start Date End Date Trenton Duque MD [address] [place] [address] PCP - General Internal Medicine 11/10/19 04/07/22 documented as of this encounter
--- OUTSIDE RECORDS SUMMARY | 2024-04-07 09:11 | XMS_ITS | Encounter Summary ---
Author Organization [facility] Address [address] [place] [address] Care Team Providers Care Marketing Sales Supervisor Name Role Phone Trenton Duque MD Primary Care Provider [phone] [phone] Reason for Visit * Reason Comments Medication Refill Encounter Details Date Type Department Care Team (Late st Contact Info) Description 07/11/2020 Refill NE STEVE [place] [address] [place] [address] Cecelia Davidson MD [address] [place] [address] Medication Refill Social History Tobacco [...] on filedocumented in this encounter Care Teams Marketing Sales Supervisor Relationship Specialty Start Date End Date Trenton Duque MD [address] [facility] [address] [place] [address] PCP - General Internal Medicine 11/10/19 04/07/22 documented as of this encounter
[2024-04-07 18:03] LABS: Estimated Average Glucose 128 mg/dL; Hemoglobin A1C 135.0504 umol/L; Hemoglobin A1c % 6.1 % (<6.0); Total Hemoglobin (HGBA1C) 3167.7095 umol/L
[2024-04-07 20:59] LABS: Alanine Aminotransferase 44 U/L (0-31); Albumin Level 4.1 g/dL (3.5-5.0); Alkaline Phosphatase 104 U/L (39-117); Anion Gap 15 (12-20); Aspartate Amino Transferase 37 U/L (5-31); Bilirubin Total 0.3 mg/dL (0.0-1.0); Blood Urea Nitrogen 14 mg/dL (9-16); Calcium 9.4 mg/dL (8.4-10.2); Carbon Dioxide 20 mmol/L (22-29); Chloride 108 mmol/L (96-108); Cholesterol 179 mg/dL (<200); Estimated Glomerular Filt Rate > 60; Free T4 (Free Thyroxine) 1.19 ng/dL (0.71-1.85); Glucose Fasting 93 mg/dL (60-99); HDL Cholesterol 36 mg/dL (>40); LDL Cholesterol Calculated 118 mg/dL (<100); Potassium 4.4 mmol/L (3.3-5.1); Sodium 139 mmol/L (135-145); Thyroid Stimulating Hormone 3.74 uIU/mL (0.32-4.0); Total Protein 8.3 g/dL (6.5-8.0); Triglycerides 126 mg/dL (<150); Vitamin D 25-OH Total 27.5 ng/mL (>30)
== END 2024-04-07 08:58 | disposition home or self-care (01) ==
LOC: HO.HKASLDS 08:57
PROVIDERS: Visit Provider Internal Medicine
DX: E03.9 Hypothyroidism, unspecified (principal); R73.01 Impaired fasting glucose; Z86.39 Personal history of other endocrine, nutritional and metabolic disease; J45.20 Mild intermittent asthma, uncomplicated; L30.9 Dermatitis, unspecified; E28.2 Polycystic ovarian syndrome
CPT/HCPCS: 36415; 80053; 80061; 82306; 83036; 84439; 84443

== ENCOUNTER 2024-04-11 10:02 | Outpatient (AMB) | payer OTHER, SELFPAY ==
[2024-04-11 10:13] VITALS: BP 122/70; PULSE 87; TEMP 36.7; O2SAT 97; BMI 40.5
--- NOTE | 2024-04-11 10:13 | A.OFFPC_ITS ---
Vital Signs 04/11/24 10:13 Height 5 ft 4 in Weight 236 lb BMI 40.5 BP 122/70 Blood Pressure Location Lt brachial Position Sitting Pulse 87 Pulse Source Pulse Oximeter Temp 98.0 F Temp Source Oral Pulse Oximetry (%) 97 Oxygen Delivery Method Room Air Intake Visit Reasons: Annual PE Intake Note: Pt is here today for her PE: last papsmear 10/20/23: Fertility doctor has her on Metformin Is last menstrual period known: Yes Last menstrual period: 04/09/24 Allergies No Known Allergies Allergy (Verified 04/18/24 01:45) Medication List - Last Reconciled 04/11/24 by Alisha Fay MD albuterol sulfate 90 mcg/actuation (ProAir RespiClick) 1 inh inhalation Q4-6H PRN cetirizine (All Day Allergy (cetirizine)) 10 mg PO DAILY PRN clobetasol 0.05% 1 appl topical DAILY PRN letrozole 7.5 mg PO DAILY levothyroxine 25 mcg PO DAILY meclizine 12.5 mg PO BID-QID PRN metformin ER 1,000 mg PO DAILY [mingo and D chiro with Inositol w/MTHF Folate +Vitamin D3 4x capsules ] omeprazole 20 mg PO DAILY PRN sertraline 25 mg PO DAILY Tobacco use date assessed: 01/04/24 Dental Screening Dental Screen Date: 01/04/24 HPI Annual PE HPI Details 33-year-old lady with past medical histo ry of hypothyroidism intermittent asthma, PCOS, eczema, morbid obesity and history of female infertility, here today for physical exam. She is currently being followed by [facility] in [facility] by Dr. Bro for treatment of infertility who has prescribed metformin for treatment of PCOS and is currently undergoing fertility treatment with Letrozole, now on her second cycle after the first unsuccessful attempt last . - She has a history of eczema managed clobetasol, asthma controlled with minimal use of albuterol inhaler, and hypothyroidism. - The patient's thyroid condition is rep ortedly well-managed - She has gastroesophageal reflux diseas e , take omeprazole as needed and is on sertraline 25 mg for depression and anxiety. - Vitamin D deficiency is present, with current supplementation that may require adjustment. -she is up-to-date with her cervical can cer screening, last done a year ago [facility] Medical History (Updated 04/18/24 @ 02:00 by Alisha Fay MD) Morbid obesity with BMI of 40.0-44.9, adult PCOS (polycystic ovarian syndrome) Eczema Mild intermittent asthma History of vitamin D deficiency Impaired fasting glucose Hypothyroidism Surgical History No pertinent past surgical history Family History Father No problems noted. Mother No problems noted. Social History Housing: Apartment Patient Tobacco Use Status: Never used Tobacco e-Cigarette/Vaping Use: Never Used service: No Current occupational status: employed and unemployed Cognitive needs: No Hearing needs: No Vision needs: No Female Reproductive History Menstrual Date of last menstrual period: 04/09/24 Questionnaire PHQ-9 Over the last 2 weeks, how often have you been bothered by any of the following problems? 1. Little interest or pleasure in doing things: not at all 2. Feeling down, depressed, or hopeless: not at all 3. Trouble falling or staying asleep, or sleeping too much: not at all 4. Feeling tired or having little energy: not at all 5. Poor appetite or overeating: not at all 6. Feeling bad about yourself - or that you are a failure or have let yourself or your family down: not at all 7. Trouble concentrating on things, such as reading the newspaper or watching television: not at all 8. Moving or speaking so slowly that other people could have noticed. Or the opposite - being so fidgety or restless that you have been moving around a lot more than usual: not at all 9. Thoughts that you would be better off or of hurting yourself in some way: not at all Total score: 0 Depression Screening Interpretation: Negative Depression Screening Done: Yes 98815 - PHQ-9 Billing: Yes Source: Developed by Drs. Ari Woody, Karol Forrester, Jose Bee and colleagues, with an educational maria luisa from [employer]. Thrive Questionnaire Date Thrive assessed: 04/08/24 I am a: Patient What is your living situation today?: I have a steady place to live Within the past 12 months, did the food you bought not last and you didn't have the money to get more?: Never true Within the past 12 months, did you worry whether your food would run out before you got money to buy more?: Never true Do you have trouble paying for medicines?: No Do you have trouble getting transportation to medical appointments?: No Do you have trouble paying your heating and electricity bill?: No Do you have trouble taking care of your child, family member or friend?: No Do you have trouble with day-to-day activities such as bathing, preparing meals, shopping, managing finances, etc.?: No Are you currently unemployed and looking for a job?: I choose not to answer this question Are you interested in more education?: No Please select the resources that you would like help with: None Currently or been in a relationship where the following occur: No concerns reported THRIVE Score: 0 AUDIT C Alcohol Use Questionnaire (AUDIT-C) 1. How often do you have a drink containing alcohol?: Monthly or less 2. How many drinks containing alcohol do you have on a typical day when you are drinking?: 1 or 2 3. How often do you have six or more drinks on one occasion?: Never Total Score: 1 MARTHA-7 AMB Questionnaire MARTHA-7 Date MARTHA - 7 assessed: 01/04/24 Feeling nervous, anxious, or on edge: 0 = Not at all Not being able to stop or control worryin = Not at all Worrying too much about different things: 1 = Several days Trouble relaxin = Not at all Being so restless that it is hard to sit still: 0 = Not at all Becoming easily annoyed or irritable: 0 = Not at all Feeling afraid as if something awful might happen: 0 = Not at all Total MARTHA-7 score (0-4 normal; 5-9 mild; 10-14 moderate; 15-21 severe): 1 Source: Developed by Drs. Ari Woody, Karol Forrester, Jose Bee and colleagues, with an educational maria luisa from [employer]. MARTHA-7 Assessment Billing MARTHA-7 Assessment Tool: MARTHA-7 Assessment 69652 Review of Systems Const Denies body aches, Denies fatigue, Denies fever(s), Denies headache(s) and Denies weakness Eyes Denies change in vision ENT Denies dizziness, Denies headache(s), Denies nasal congestion, Denies nasal discharge and Denies sore throat Card Denies chest pain, Denies lightheadedness, Denies palpitations and Denies dyspnea Resp Denies chest congestion, Denies cough, Denies dyspnea and Denies wheezing GI Denies abdominal pain and Denies change in bowel habits Denies hematuria, Denies urinary frequency, Denies dysuria and Denies urinary urgency Musc Reports no additional complaints Skin/Breast Denies breast pain, Denies breast mass, Denies lesions and Denies rash Neuro Denies dizziness, Denies headache(s) and Denies weakness Psych Reports no additional complaints Endo Denies fatigue, Denies polydipsia, Denies polyuria and Denies palpitations Jose Alberto/Lymph Denies easy bruising Aller/Immun Denies seasonal rhinorrhea and Denies wheezing Physical exam (Primary Care) Vital Signs: Last Vital Signs Temp 98.0 F 04/11/24 10:13 Pulse 87 04/11/24 10:13 BP 122/70 04/11/24 10:13 Pulse Ox 97 04/11/24 10:13 Oxygen Delivery Method Room Air 04/11/24 10:13 BMI result Body Mass Index 40.5 Tobacco/Smoking Status: Tobacco use Status Tobacco use date assessed 01/04/24 04/11/24 10:13 Patient Tobacco Use Status Never used Tobacco 04/11/24 10:13 e-Cigarette/Vaping Use Never Used 04/11/24 10:13 PHQ-9: PHQ-9 Score PHQ-9: Total score 0 04/11/24 11:03 Depression Screening Interpretation: Negative Thrive Assessment: Date of Thrive Assessment Date Thrive assessed 04/08/24 04/11/24 10:13 Currently or been in a relationship where the following occur: No concerns reported Advance Care Planning discussion: Completed/Scanned Date of discussion: 04/11/24 Who was present: Patient Forms completed: Health Care Proxy Time spent: 16-45 minutes Actual minutes spent: 3 Const General: no acute distress and alert Nutritional Appearance: obese Orientation/consciousness: patient oriented x3 HENMT Ears: external ears normal, TM's normal bilaterally and EAC's normal General nose exam: Normal external nose present and No nasal discharge present Mouth: Normal oral and palatal mucosa present, oropharynx normal and moist mucous membranes Eyes General: appearance normal, both eyes and all related structures Conjunctivae: conjunctivae normal Sclerae: sclerae normal Pupils: Equal, round and reactive pupils present EOM: EOMs intact bilaterally Neck Neck: Yes full ROM, Yes no lymphadenopathy and Yes supple Chest Chest palpation & inspection: normal inspection of the chest Breast/axilla inspection: normal inspection of the breasts Breast/axilla palpation: normal palpation of the breasts Resp Effort & Inspection: normal respiratory effort and able to speak in complete sentences Auscultation: clear to auscultation bilaterally Cardio Rate: regular rate Rhythm: regular rhythm Heart sounds: S1 normal heart sound present and S2 normal heart sound present GI Palpation (GI): Soft to palpation, nontender and no masses Auscultation: normal bowel sounds Other: Goes to her own OBGYN at [facility] General: Yes deferred Back/Spine/Pelvis Back: No back tenderness Skin General skin exam: no rashes or lesions noted Neuro General: patient oriented x3, gait normal, tone normal, moves all extremities, Normal light touch and pain sensation and no focal motor deficits Cranial nerves: Yes CN's II-XII intact bilaterally and Yes Equal, round and reactive pupils present Cognition (Neuro): normal cognition Extrem General: Yes full ROM, Yes no joint enlargement, Yes no clubbing, cyanosis or edema and Yes no calf tenderness Psych Appearance: grossly normal and well kempt Mental Status: mental status grossly normal Speech and movement: Normal speech and movement present Affect: normal affect Attitude: cooperative Thought process: Normal thought process present Results Reviewed Results Reviewed: Name: Julia Salazar Age/Sex: 33/F [facility] 1990 [id number]#: [id number] Attend Dr: Alisha Fay MD Re04/07/24 Status: DEP REF Location: [facility] Disch: SPEC : [id number] JARRETT: 04/07/24 STATUS: COMP REQ : [id number] RECD: 04/07/[address]: Alisha Fay MD COMP: 04/07/24 ENTERED: 04/07/[address]: ORDERED: CMP Fast, Lipid Panel, Vitamin D 25-OH, Free T4, TSH Test Result Flag Reference Sodium 139 135-145 mmol/L Potassium 4.4 3.3-5.1 mmol/L CL 108 96-108 mmol/L CO2 20 L 22-29 mmol/L Gap 15 12-20 BUN 14 9-16 mg/dL Creat 0.73 0.5-1.4 mg/dL eGFR > 60 Chronic Kidney Disease: Estimated GFR < 60 mL/min/1.73m2 Severe Kidney Disease: Estimated GFR < 15 mL/min/1.73m2 FBS 93 60-99 mg/dL CA 9.4 8.4-10.2 mg/dL Total Bili 0.3 0.0-1.0 mg/dL AST (GOT) 37 H 5-31 U/L ALT (GPT) 44 H 0-31 U/L Protein, Total 8.3 H 6.5-8.0 g/dL Alb 4.1 3.5-5.0 g/dL Triglyceride 126 <150 mg/dL Slight Lipemia. Desirable Triglyceride: less than 150 mg/dL Borderline High Triglyceride 150-199 mg/dL High Triglyceride: 200-499 mg/dL Very High Triglyceride: greater than or equal to 5OO mg/dL Cholesterol 179 <200 mg/dL Desirable Cholesterol: less than 200 mg/dL Borderline High Cholesterol: 200-239 mg/dL High Cholesterol: greater than 239 mg/dL LDL Calculated 118 H <100 mg/dL Desirable LDL: less than 100 mg/dL Near Optimal/Above Optimal LDL: 110-129 mg/dL Borderline High LDL: 130-159 mg/dL High LDL: 160-189 mg/dL Very High LDL: greater than or equal to 190 mg/dL HDL 36 L >40 mg/dL Desirable HDL: greater than 40 mg/dL Note: This HDL assay may give artificially low results in patients with liver disease. Alk Phos 104 39-117 U/L Vit D 25-OH Tot 27.5 L >30 ng/mL Health Based Reference Values* < 20 ng/mL Deficient 20-30 ng/mL Insufficient > 30 ng/mL Sufficient *Barry BRUSH. N Engl J Med. 2007;357:266-280 Care must be taken in interpreting Vitamin D results from different laboratories and methodologies. Published data demonstrated that results from patients undergoing hemodialysis may show a negative bias when tested with various automated 25-OH vitamin D assays when compared to LC-MS/MS. When testing samples from patients whose predominant form of Vitamin D is Vitamin D2, such as patients receiving Vitamin D2 supplementation, results that are subtherapeutic should be confirmed with another method such as LC-MS/MS. Free T4 1.19 0.71-1.85 ng/dL TSH 3rd Gen. 3.74 0.32-4.0 uIU/mL Note: A sustained TSH level above 2.5 uIU/mL may warrant further investigation. TSH 3rd Generation ([facility]) Coding Level of Care Code Est Pt Prev Care 18-39y(15624) Diagnoses Annual visit for general adult medical examination with abnormal findings Z00.01 Hx of female infertility Z87.42 Morbid obesity with BMI of 40.0-44.9, adult E66.01; Z68.41 PCOS (polycystic ovarian syndrome) E28.2 Eczema, unspecified type L30.9 Eczema type: unspecified Mild intermittent asthma without complication J45.20 Asthma complication type: uncomplicated History of vitamin D deficiency Z86.39 Impaired fasting glucose R73.01 Acquired hypothyroidism E03.9 Hypothyroidism type: acquired Advanced directives, counseling/discussion Z71.89 Additional Codes PHQ-9 - 27799 - PHQ-9 Billing: Yes ([id number]) MARTHA-7 Assessment Billing - MARTHA-7 Assessment Tool: MARTHA-7 Assessment 60547 ([id number]) Vital Signs *Quality* - Advance Care Planning discussion: Completed/Scanned ([id number]) Vital Signs *Quality* - Time spent: 16-45 minutes ([id number]) Assessment & Plan Assessment & Plan (1) Annual visit for general adult medical examination with abnormal findings: Code(s): Z00.01 - Encounter for general adult medical examination with abnormal findings Plan: Fasting labs reviewed with patient. Continue with regular dental visit every 6 months and regular eye exams, at least every 2 years. Take adequate calcium in diet and vitamin-D 3 at 2000 IU per cap once a day, in addition to weight- bearing exercises to help maintain good muscle tone and weight control. Instructed to do self-breast exam, and continue with yearly mammogram, starting at age 40. Up-to-date with her cervical cancer screening. Reminded to get yearly flu shot, Tdap and COVID booster (2) Hx of female infertility: Comment: sees Dr Bro @ [facility] in [facility] Code(s): Z87.42 - Personal history of other diseases of the female genital tract Category: Medical Plan: Followed at [facility] by Dr. Bro (3) Morbid obesity with BMI of 40.0-44.9, adult: Comment: Previously on Wegovy last year, was able to lose 10 lb Code(s): E66.01 - Morbid (severe) obesity due to excess calories; Z68.41 - Body mass index [BMI] 40.0-44.9, adult Category: Medical Plan: Encouraged to follow diet get regular exercise (4) PCOS (polycystic ovarian syndrome): Comment: sees [facility] Code(s): E28.2 - Polycystic ovarian syndrome Category: Medical Plan: Followed by [facility] OBGYN currently on metformin (5) Eczema: Code(s): L30.9 - Dermatitis, unspecified Category: Medical Qualifiers: Eczema type: unspecified Qualified Code(s): L30.9 - Dermatitis, unspecified Plan: Has clobetasol 0.05% applied once a day to affected areas for no more than 10 days at a time (6) Mild intermittent asthma: Code(s): J45.20 - Mild intermittent asthma, uncomplicated Category: Medical Qualifiers: Asthma complication type: uncomplicated Qualified Code(s): J45.20 - Mild intermittent asthma, uncomplicated Plan: Currently has albuterol inhaler to be used as needed for episodes of wheezing and bronchospasm (7) History of vitamin D deficiency: Code(s): Z86.39 - Personal history of other endocrine, nutritional and metabolic disease Category: Medical Plan: Currently using albuterol inhaler as needed (8) Impaired fasting glucose: Code(s): R73.01 - Impaired fasting glucose Category: Medical Plan: Your previous fasting blood sugars were elevated above 100 mg/dL. Impaired glucose metabolism increases the risk for developing diabetes mellitus type 2, as well as heart attack and stroke later on. Lifestyle changes that promotes weight loss, healthy eating habits, and regular exercise are important, and can prevent the progression to diabetes (9) Hypothyroidism: Code(s): E03.9 - Hypothyroidism, unspecified Category: Medical Qualifiers: Hypothyroidism type: acquired Qualified Code(s): E03.9 - Hypothyroidism, unspecified Plan: Continue levothyroxine 25 mcg daily in a.m. (10) Advanced directives, counseling/discussion: Code(s): Z71.89 - Other specified counseling Plan: Initiated the conversation about Advanced Directives. Advanced Directives help patients prepare for current and future decisions about their medical treatment and place of care. Discussed with patient that it is a process where a patients current condition and prognosis are reviewed, their wishes for inform ation regarding their illness are elicited, and likely medical dilemmas are presented and options discussed. Healthcare proxy form completed today. The form can be amended as needed, reviewed yearly and make changes as needed Plan The patient will continue infertility treatment with Letrozole as directed by Dr. Bro at [facility]. I will ensure regular thyroid monitoring. The current regimen of metformin, omeprazole, and sertraline is appropriate and will be maintained. An increase in Vitamin D supplementation to 3000 IU is recommended to address the deficiency. Emphasis is placed on improving exercise habits and weight management. It is prudent to reassess for further vaccinations, specifically regarding Tdap. We will coordinate with [facility] to ensure continuity and review of infertility management and continuous assessment. Patient was informed and verbally consented to the use of an ambient scribe for clinic note documentation during this visit.
--- OUTSIDE RECORDS SUMMARY | 2024-04-11 10:52 | XMS_ITS | Encounter Summary ---
Author Organization [facility] Address [address] [place] [address] Care Team Providers Care Medical Radiation Tech Name Role Phone Trenton Duque MD Primary Care Provider [phone] Reason for Visit * Reason Comments Medication Refill Encounter Details Date Type Department Care Team (Late st Contact Info) Description 07/11/2020 Refill [facility] [place] [address] [place] [address] Cecelia Davidson MD [address] [place] [address] Medication Refill Social History Tobacco [...] filedocumented in this encounter Care Teams Medical Radiation Tech Relationship Specialty Start Date End Date Trenton Duuqe MD [address] [facility] [address] [place] [address] PCP - General Internal Medicine 11/10/19 04/07/22 documented as of this encounter
--- OUTSIDE RECORDS SUMMARY | 2024-04-11 10:52 | XMS_ITS | Encounter Summary ---
Author Organization [facility] Address [address] [place] [address] Care Team Providers Care Supply Clerk Name Role Phone Trenton Duque MD Primary Care Provider [phone] Reason for Visit * Reason Comments Medication Refill Encounter Details Date Type Department Care Team (Late st Contact Info) Description 07/31/2020 Refill [facility] Internal Medicine [place] [address] [place] [id number] Trenton Duque MD [address] [address] Medication Refill Social History Tobacco [...] on filedocumented in this encounter Care Teams Supply Clerk Relationship Specialty Start Date End Date Trenton Duque MD [address] [place] [address] [place] [address] PCP - General Internal Medicine 11/10/19 04/07/22 documented as of this encounter
--- OUTSIDE RECORDS SUMMARY | 2024-04-11 10:52 | XMS_ITS | Encounter Summary ---
Author Organization [facility] Address [address] [place] [address] Care Team Providers Care Litigation Assistant Name Role Phone Trenton Duque MD Primary Care Provider [phone] [phone] Encounter Details Date Type Department Care Team (Late st Contact Info) Description 09/10/2020 Orders Only [facility] [address] [place] [address] Cecelia Davidson MD [address] [place] [address] Hypouricemia (Primary Dx) Social History [...] <1.00 <=2.00 IU/L 05/25/2021 9:40 PM EDT [facility] Comment: This test was performed using the TRAb Antibody HI method which is standardized against the 1st International Standard 90/672 and is reported in International Units (IU/L). The reference range reported was established specifically for this test method. Test Performed at: [facility] [address] ??[id number] Nathan Slater M.D., Ph.D.,Director of Laboratories Blood Venipuncture / Unknown 05/21/2021 1:59 PM EDT 05/21/2021 1:59 PM EDT us Cecelia Davidson MD LAB BLOOD ORDERABLES Clarissa pedro Result [facility] documented in this encounter Visit Diagnoses Diagnosis Hypouricemia- Primary Other abnormal blood chemistry documented in this encounter Additional Health Concerns Assessment Noted Time PHQ-9 Depression Total Score: 0 09/11/19 21 12:02 PM EDT documented as of this encounter Care Teams Litigation Assistant Relationship Specialty Start Date End Date Trenton Duque MD [address] [facility] [address] [place] [phone] PCP - General Internal Medicine 11/10/19 04/07/22 documented as of this encounter
--- OUTSIDE RECORDS SUMMARY | 2024-04-11 10:52 | XMS_ITS | Encounter Summary ---
Author Organization [facility] Address [address] [place] [address] Care Team Providers Care Fountain Worker Name Role Phone Trenton Duque MD Primary Care Provider [phone] Reason for Visit * Reason Onset Date Comments Medication Refill 09/19/2020 Encounter Details Date Type Department Care Team (Late st Contact Info) Description 09/19/2020 Refill [facility] Internal Medicine [place] [address] [place], [place] [id number] rTenton Duque MD [address] [facility] [address] [place] [address] Medication Refill Social History Tobacco [...] documented as of this encounter Care Teams Fountain Worker Relationship Specialty Start Date End Date Trenton Duque MD [address] [place] [address] PCP - General Internal Medicine 11/10/19 04/07/22 documented as of this encounter
--- OUTSIDE RECORDS SUMMARY | 2024-04-11 10:52 | XMS_ITS | Encounter Summary ---
Author Organization [facility] Address [address] [place] [address] Care Team Providers Care Apprentice Architect Name Role Phone Trenton Duque MD Primary Care Provider [phone] Reason for Visit * Reason Onset Date Comments Medication Refill 06/08/2020 Encounter Details Date Type Department Care Team (Late st Contact Info) Description 06/08/2020 Refill [facility] [place] [address] [place] [address] Cecelia Davidson MD [address] [place] [address] Medication Refill Social History Tobacco [...] on filedocumented in this encounter Care Teams Apprentice Architect Relationship Specialty Start Date End Date Trenton Duque MD [address] [address] PCP - General Internal Medicine 11/10/19 04/07/22 documented as of this encounter
--- OUTSIDE RECORDS SUMMARY | 2024-04-11 10:52 | XMS_ITS | Encounter Summary ---
Author Organization [facility] Address [address] [place] [address] Care Team Providers Care Railroad Accountant Name Role Phone Trenton Duque MD Primary Care Provider +1 -[phone] Reason for Visit * Reason Onset Date Comments Medication Refill 09/19/2020 Encounter Details Date Type Department Care Team (Late st Contact Info) Description 09/19/2020 Refill NE STEVE [place] [address] [place] [phone] Cecelia Davidson MD [address] [place] [address] Medication Refill Social History Tobacco [...] documented as of this encounter Care Teams Railroad Accountant Relationship Specialty Start Date End Date Trenton Duque MD [address] [facility] 100 [place] [phone] PCP - General Internal Medicine 11/10/19 04/07/22 documented as of this encounter
--- OUTSIDE RECORDS SUMMARY | 2024-04-11 10:52 | XMS_ITS | Encounter Summary ---
Author Organization [facility] Address [address] [place] [address] Care Team Providers Care Residential Sales Name Role Phone Unavailable Primary Care Provider Unavailabl e Encounter Details Date Type Department Care Team (Late st Contact Info) Description 04/17/2023 Scanned Document NE OBN [place] 500 [place] [address] Cecelia Davidson MD [address] [place] [address] Social History Tobacco Use Types [...]
--- OUTSIDE RECORDS SUMMARY | 2024-04-11 10:52 | XMS_ITS | Encounter Summary ---
Author Organization [facility] Address [address] [place] [address] Care Team Providers Care Night Stocker Name Role Phone Trenton Duque MD Primary Care Provider + -[phone] Reason for Visit * Reason Comments Medication Refill Encounter Details Date Type Department Care Team (Late st Contact Info) Description 07/31/2020 Refill NEM Internal Medicine [place] [address] [place] [phone] Trenton Duque MD [address] [address] Medication Refill Social History Tobacco [...] on filedocumented in this encounter Care Teams Night Stocker Relationship Specialty Start Date End Date Trenton Duque MD [address] [place] [address] [place] [address] PCP - General Internal Medicine 11/10/19 04/07/22 documented as of this encounter
--- OUTSIDE RECORDS SUMMARY | 2024-04-11 10:52 | XMS_ITS | Encounter Summary ---
Author Organization [facility] Address [address] [place] [address] Care Team Providers Care News Technical Director Name Role Phone Trenton Duque MD Primary Care Provider +1 -[phone] Encounter Details Date Type Department Care Team (Latest Contact Info) Description 09/13/2020 Transcribed Orders [facility] [address] [place] [address] Cecelia Davidson MD [address] [place] [address] Routine general medical examination at [...] 163 See Comment ng/dL 09/13/2020 8:05 PM [facility] DEPARTMENT OF PATHOLOGY Comment: Females: Premenopause: 21 - 60 Years Old ? 9 - 48 ng/dL Postmenopause: >=45 Years Old ?<7 - 46 ng/dL Sex Hormone Binding Globulin 69 See Comment nmol/L 09/13/2020 8:05 PM [facility]MENT [facility] PATHOLOGY Comment: Females: Premenopause: 21 - 60 Years Old ? 11 - >180 nmol/L Postmenopause: >=45 Years Old ?23 - 159 nmol/L Free Testosterone Index 8.19 See Comment Index 09/13/2020 8:05 PM [facility] DEPARTMENT OF PATHOLOGY Comment: Females: Premenopause: 21 - 60 Years Old ?0.27 - 7.64 Index Postmenopause: >=45 Years Old ? 0.17 - 4.15 Index Blood Venipuncture / Unknown 09/13/2020 5:45 PM EDT 09/13/2020 5:46 PM EDT us Cecelia Davidson MD LAB BLOOD ORDERABLES Clarissa l Result [facility] DEPARTMENT OF PATHOLOGY [address] [place] [address] documented in this encounter Visit Diagnoses Diagnosis Routine general medical examination at a health care facility- Primary documented in this encounter Additional Health Concerns Assessment Noted Time PHQ-9 Depression Total Score: 0 09/14/19 9:35 AM EDT documented as of this encounter Care Teams News Technical Director Relationship Specialty Start Date End Date Trenton Duque MD [address] [address] [place] [address] PCP - General Internal Medicine 11/10/19 04/07/22 documented as of this encounter
--- OUTSIDE RECORDS SUMMARY | 2024-04-11 10:53 | XMS_ITS | Encounter Summary ---
Author Organization [facility] Address [address] [place] [address] Care Team Providers Care Vehicle Operator Name Role Phone Trenton Duque MD Primary Care Provider +1 -[phone] Reason for Referral * Imaging (Routine) - Closed Specialty Diagnoses / Procedures Referred By Contac t Referred To Contact Diagnostic Radiology Procedures Non OB Transvaginal External, Provider Referral ID Status Reason Start Date Expiration Date Visits Re quested Visits Authorized [id number] Closed 12/12/2019 12/11/2020 1 1 Encounter Details Date Type Department Care Team (Late st Contact Info) Description 12/12/2019 Scanned Document NEMG Internal Medicine [address] [address] External, Provider Social History Tobacco Use Types [...] documented as of this encounter Care Teams Vehicle Operator Relationship Specialty Start Date End Date Trenton Duque MD [address] [address] PCP - General Internal Medicine 11/10/19 04/07/22 documented as of this encounter
--- OUTSIDE RECORDS SUMMARY | 2024-04-11 10:53 | XMS_ITS | Encounter Summary ---
Author Organization [facility] Address [address] [place] [address] Care Team Providers Care Double Surface Operator Name Role Phone Trenton Duque MD Primary Care Provider +1 -[phone] Reason for Visit * Reason Comments Medication Refill Encounter Details Date Type Department Care Team (Late st Contact Info) Description 04/04/2020 Refill NE STEVE [place] [address] [place] [address] Cecelia Davidson MD [address] [place] [address] Medication Refill Social History Tobacco [...] on filedocumented in this encounter Care Teams Double Surface Operator Relationship Specialty Start Date End Date Trenton Duque MD [address] [facility] 100 [place] [address] PCP - General Internal Medicine 11/10/19 04/07/22 documented as of this encounter
--- OUTSIDE RECORDS SUMMARY | 2024-04-11 10:53 | XMS_ITS | Encounter Summary ---
Author Organization [facility] Address [address] [place] [address] Care Team Providers Care Outside Sales Associate Name Role Phone Trenton Duque MD Primary Care Provider +1 -[phone] Reason for Visit * Reason Comments Medication Refill Encounter Details Date Type Department Care Team (Late st Contact Info) Description 04/27/2020 Refill NEM Internal Medicine [place] [address] [place] [phone] Trenton Duque MD [address] [facility] 100 [place] [address] Medication Refill Social History Tobacco [...] on filedocumented in this encounter Care Teams Outside Sales Associate Relationship Specialty Start Date End Date Trenton Duque MD [address] [facility] [address] [place] [address] PCP - General Internal Medicine 11/10/19 04/07/22 documented as of this encounter
--- OUTSIDE RECORDS SUMMARY | 2024-04-11 10:53 | XMS_ITS | Encounter Summary ---
Author Organization [facility] Address [address] [place] [address] Care Team Providers Care Marketing Secretary Name Role Phone Unavailable Primary Care Provider Unavailabl e Encounter Details Date Type Department Care Team (Late st Contact Info) Description 04/17/2023 Scanned Document NE OBN [place] 500 [place] [address] Cecelia Davidson MD [address] [place] [address] Social History Tobacco Use Types [...]
--- OUTSIDE RECORDS SUMMARY | 2024-04-11 10:53 | XMS_ITS | Encounter Summary ---
Author Organization [facility] Address [address] [place] [address] Care Team Providers Care Multi Share Program Coordinator Name Role Phone Trenton Duque MD Primary Care Provider +1 -[phone] Reason for Visit * Reason Comments Medication Refill Encounter Details Date Type Department Care Team (Late st Contact Info) Description 03/13/2020 Refill NEM Internal Medicine [place] [address] [place] [address] [place] [phone] Trenton Duque MD [address] [place] [address] [place] [address] Medication Refill Social History Tobacco [...] documented as of this encounter Care Teams Multi Share Program Coordinator Relationship Specialty Start Date End Date Trenton Duque MD [address] [place] [facility] 100 [place] [address] PCP - General Internal Medicine 11/10/19 04/07/22 documented as of this encounter
--- OUTSIDE RECORDS SUMMARY | 2024-04-11 10:53 | XMS_ITS | Encounter Summary ---
Author Organization [facility] Address [address] [place] [address] Care Team Providers Care Garment Alteration Examiner Name Role Phone Trenton Duque MD Primary Care Provider +1 -[phone] Reason for Visit * Reason Onset Date Comments Medication Refill 12/19/2020 Encounter Details Date Type Department Care Team (Late st Contact Info) Description 12/19/2020 Refill [facility] Internal Medicine [place] [address] [place] [place] [address] [place], [place] [phone] Trenton Duque MD [address] [facility] [address] [place] [address] Medication Refill Social History Tobacco [...] documented as of this encounter Care Teams Garment Alteration Examiner Relationship Specialty Start Date End Date Trenton Duque MD [address] [facility] 100 [place] [address] PCP - General Internal Medicine 11/10/19 04/07/22 documented as of this encounter
--- OUTSIDE RECORDS SUMMARY | 2024-04-11 10:53 | XMS_ITS | Encounter Summary ---
Author Organization [facility] Address [address] [place] [address] Care Team Providers Care Handle Bender Name Role Phone Trenton Duque MD Primary Care Provider +1 -[phone] Encounter Details Date Type Department Care Team (Latest Contact Info) Description 12/26/2019 Transcribed Orders [facility]imens [address] [place] [address] Cecelia Davidson MD [address] [place] [address] Well woman exam with routine gynecological exam (Primary Dx) Social History Tobacco Use Types [...] Procedure Name Priority Date/Time Associated Diagnosis Comments HPV DNA (HIGH RISK) (GH Q WH) Routine 12/26/2019 10:44 AM EDT Well woman exam with routine gynecological exam C. TRACHOMATIS / N. GONORRHOEAE, NAAT (BH GH L LMW YH) Routine 12/26/2019 10:44 AM EDT Well woman exam with routine gynecological exam NEISSERIA GONORRHEA, NAAT (LAB ORDER ONLY) ([facility] LMW Y) Routine 12/26/2019 10:44 AM EDT Well woman exam with routine gynecological exam CHLAMYDIA TRACHOMATIS, NAAT (LAB ORDER ONLY) ([facility] LMW YH) Routine 12/26/2019 10:44 AM EDT Well woman exam with routine gynecological exam documented in this encounter Results * Chlamydia trachomatis, NAAT ([facility] Y) (12/26/2019 10:44 AM EDT) Chlamydia DNA Probe Negative Negative 12/30/2019 1:12 PM EDT [facility] DEPARTMENT OF PATHOLOGY Comment:The Aptima Combo2 As say is not intended for the evaluation of suspected sexual abuse or for other medico-legal indications. 3 12/30/2019 1:12 PM EDT [facility] DEPARTMENT OF PATHOLOGY Culture CERVIX CYTOLOGIC MATERIAL / Unknown Collection / Unknown 12/26/2019 10:44 AM EDT 12/27/2019 10:44 AM EDT us Cecelia Davidson MD MICROBIOLOGY - GENERAL OR DERABLES Final Result [facility] DEPARTMENT OF PATHOLOGY [address] [place] [address] * Neisseria gonorrhoeae, NAAT ([facility] Y) (12/26/2019 10:44 AM EDT) Neisseria gonorrhoeae, DNA Probe Negative Negative 12/30/2019 1:12 PM EDT [facility] DEPARTMENT OF PATHOLOGY Comment:The Aptima Combo2 As say is not intended for the evaluation of suspected sexual abuse or for other medico-legal indications. 3 12/30/2019 1:12 PM EDT [facility] DEPARTMENT OF PATHOLOGY Culture CERVIX CYTOLOGIC MATERIAL / Unknown Collection / Unknown 12/26/2019 10:44 AM EDT 12/27/2019 10:44 AM EDT us Cecelia Davidson MD MICROBIOLOGY - GENERAL OR DERABLES Final Result [facility] DEPARTMENT OF PATHOLOGY [address] [place] [address] * HPV DNA (high risk) (GH Q) (12/26/2019 10:44 AM EDT) HPV DNA High Risk Not Detected Not Detected 12/29/2019 4:01 PM EDT [facility] DEPARTMENT OF PATHOLOGY Comment: INTERPRETATION: APTIMA HPV mRNA AMPLIFICATION The presence of Human Papilloma Virus in the female genital tract is associated with a number of diseases,including cervical carcinoma. ??High-Risk subtypes include 16,18,31,33,35,39,45,51,52,56,58,59 and 68. ??A detected result indicates detection of nucleic acid sequences from one or more subtypes within the high risk group. ??Results should be correlated with other cytological findings. The APTIMA HPV Assay has not been evaluated in cases of suspected sexual abuse. The analytical performance characteristics of this assay, when used to test SUREPATH specimens, have been determined at the [facility]. 73 12/29/2019 4:01 PM EDT [facility] DEPARTMENT OF PATHOLOGY Surepath Cervical CERVIX CYTOLOGIC MATERIAL / Unknown Collection / Unknown 12/26/2019 10:44 AM EDT 12/27/2019 10:44 AM EDT us Cecelia Davidson MD MICROBIOLOGY - GENERAL OR DERABLES Final Result [facility] DEPARTMENT OF PATHOLOGY [address] [place] [address] documented in this encounter Visit Diagnoses Diagnosis Well woman exam with routine gynecological exam- Primary Routine gynecological examination documented in this encounter Additional Health Concerns Infection Onset Date Last Indicated Resolved Time R/O COVID-19 03/16/2020 03/16/2020 03/19/2020 3:29 AM EST documented as of this encounter Care Teams Handle Bender Relationship Specialty Start Date End Date Trenton Duque MD [address] [phone] PCP - General Internal Medicine 11/10/19 04/07/22 documented as of this encounter
--- OUTSIDE RECORDS SUMMARY | 2024-04-11 10:53 | XMS_ITS | Encounter Summary ---
Author Organization [facility] Address [address] [place] [address] Care Team Providers Care Branch Sales And Service Representative Name Role Phone Trenton Duque MD Primary Care Provider +1 -[phone] Reason for Visit * Reason Comments Medication Refill Encounter Details Date Type Department Care Team (Late st Contact Info) Description 03/16/2021 Refill NEM Internal Medicine [place] [address] [place] [address] [place] [phone] Trenton Duque MD [address] [facility] 100 [place] [address] Medication Refill Social History Tobacco [...] documented as of this encounter Care Teams Branch Sales And Service Representative Relationship Specialty Start Date End Date Trenton Duque MD [address] [facility] 100 [place] [phone] PCP - General Internal Medicine 11/10/19 04/07/22 documented as of this encounter
--- OUTSIDE RECORDS SUMMARY | 2024-04-11 10:53 | XMS_ITS | Encounter Summary ---
Author Organization [facility] Address [address] [place] [address] Care Team Providers Care Learning And Development Manager Name Role Phone Unavailable Primary Care Provider Unavailabl e Reason for Visit * Reason Comments Medication Refill Encounter Details Date Type Department Care Team (Late st Contact Info) Description 12/30/2022 Refill NEMG Internal Medicine [place] [address] [place] [address] Trenton Duque MD [address] [facility] 100 [place] [address] Medication Refill Social History Tobacco Use Types [...]
--- OUTSIDE RECORDS SUMMARY | 2024-04-11 10:53 | XMS_ITS | Encounter Summary ---
Author Organization [facility] Address [address] [place] [address] Care Team Providers Care Customer Advocacy Manager Name Role Phone Unavailable Primary Care Provider Unavailabl e Reason for Visit * Reason Onset Date Comments Medication Refill 05/02/2022 Encounter Details Date Type Department Care Team (Late st Contact Info) Description 05/02/2022 Refill NE STEVE [place] [address] [place] [phone] Cecelia Davidson MD 500 [place] [address] Medication Refill Social History Tobacco [...]
--- OUTSIDE RECORDS SUMMARY | 2024-04-11 10:53 | XMS_ITS | Encounter Summary ---
Author Organization [facility] Address [address] [place] [address] Care Team Providers Care Ski Binding Fitter And Repairer Name Role Phone Unavailable Primary Care Provider Unavailabl e Reason for Visit * Reason Comments Med Change Request Encounter Details Date Type Department Care Team (Late st Contact Info) Description 04/16/2023 Refill NE OBGYN [place] 500 [place] [address] Cecelia Davidson MD 500 [place] [address] Med Change Request Social History [...]
--- OUTSIDE RECORDS SUMMARY | 2024-04-11 10:53 | XMS_ITS | Encounter Summary ---
Author Organization [facility] Address [address] [place] [address] Care Team Providers Care Labor Utilization Superintendent Name Role Phone Trenton Duque MD Primary Care Provider +1 -[phone] Reason for Visit * Reason Comments Medication Refill Encounter Details Date Type Department Care Team (Late st Contact Info) Description 11/16/2020 Refill NE STEVE [place] [address] [place] [phone] Cecelia Davidson MD [address] [place] [address] Medication Refill Social History Tobacco Use Types [...] documented as of this encounter Care Teams Labor Utilization Superintendent Relationship Specialty Start Date End Date Trenton Duque MD [address] [facility] 100 [place] [address] PCP - General Internal Medicine 11/10/19 04/07/22 documented as of this encounter
--- OUTSIDE RECORDS SUMMARY | 2024-04-11 10:53 | XMS_ITS | Encounter Summary ---
Author Organization [facility] Address [address] [place] [address] Care Team Providers Care Special Service Representative Name Role Phone Trenton Duque MD Primary Care Provider +1 -[phone] Encounter Details Date Type Department Care Team (Late st Contact Info) Description 03/16/2020 Lab Requisition [facility] Specimens [address] [place] [address] Darian Yi MD [address] [place] [phone] Encounter for screening for other viral diseases [...] Date/Time Associated Diagnosis Comments SARS COV-2 (COVID-19) RNA-[facility] ([facility]) Routine 03/16/2020 8:55 PM EST Encounter for screening for other viral diseases documented in this encounter Results * SARS CoV-2 (COVID-19) RNA-[facility] (Healthcare Worker) ([facility] LMW YH) (03/16/2020 8:55 PM EST) SARS-CoV-2 Specimen Source Nasopharynx 03/19/2020 2:26 AM [facility] SARS-CoV-2 Patient Race Unknown 03/19/2020 2:26 AM [facility] SARS-CoV-2 Patient Ethnicity Unknown 03/19/2020 2:26 AM [facility] SARS-CoV-2 RNA [place] Undetected Undetected 03/19/2020 2:26 AM [facility] Comment: SARS-CoV-2 RNA absent. This result does not rule out COVID-19 in the patient, as the sensitivity of the test depends on the timing of the specimen collection and the quality of the specimen. Result should be correlated with patient's history and clinical presentation. SARS-CoV-2 Method Summary SEE COMMENTS 03/19/2020 2:26 AM [facility] Comment: PREETHI- This PCR test uses the preethi SARS-CoV-2 assay (to [employer] and is performed on the preethi eCareer0 System. It has received Emergency Use Authorization (EUA) by the U.S. Food and Drug Administration. Performance characteristics were verified by [facility] in a manner consistent with CLIA requirements. Fact sheets for this Emergency Use Authorization (EUA) can be found at the following links: https://www.fda.gov/media/898451/download for Healthcare Providers https://www.fda.gov/media/552450/download for Patients Test Performed by: [facility] [place] [address] Tax Manager Public: Robert Mata M.D. Ph.D.; CLIA# [id number] Viral NASOPHARYNGEAL STRUCTURE / Unknown 03/16/2020 8:55 PM EST 03/16/2020 8:55 PM EST Darian Yi MD MICROBIOLOGY - GENERAL ORD ERABLES Final Result [facility] documented in this encounter Visit Diagnoses Diagnosis Encounter for screening for other viral diseases documented in this encounter Additional Health Concerns Infection Onset Date Last Indicated Resolved Time R/O COVID-19 03/16/2020 03/16/2020 03/19/2020 3:29 AM EST documented as of this encounter Care Teams Special Service Representative Relationship Specialty Start Date End Date Trenton Duque MD [address] [facility] 100 [place] [address] PCP - General Internal Medicine 11/10/19 04/07/22 documented as of this encounter
--- OUTSIDE RECORDS SUMMARY | 2024-04-11 10:53 | XMS_ITS | Encounter Summary ---
Author Organization [facility] Address [address] [place] [address] Care Team Providers Care Management Assistant Name Role Phone Trenton Duque MD Primary Care Provider +1 -[phone] Reason for Visit * Reason Comments Medication Refill Encounter Details Date Type Department Care Team (Late st Contact Info) Description 01/18/2021 Refill NEM Internal Medicine [place] [address] [place] [address] [place] [address] [place], [place] [phone] Trenton Duque MD [address] [place] [address] [place] [address] Medication Refill Social History Tobacco [...] 01/18/2021 7:37 AM EST Message from the Computer Hardware Engineer - MEDICATION REFILLS Time of Call: 7:37 AM Confirmed w/ Patient Preferred Pharmacy: [id number] [place], [place] - [address] [facility] Last office visit: 09/10/2020 Next office visit: Visit date not found Please give us 24 hours to respond to your request. Patient was reminded to contact their preferred pharmacy for further electronic refills. Patient was encouraged to set up a [employer] account to request electronic refills in the [...] documented as of this encounter Care Teams Management Assistant Relationship Specialty Start Date End Date Trenton Duque MD [address] [facility] 100 [place] [address] PCP - General Internal Medicine 11/10/19 04/07/22 documented as of this encounter
--- OUTSIDE RECORDS SUMMARY | 2024-04-11 10:53 | XMS_ITS | Encounter Summary ---
Author Organization [facility] Address [address] [place] [address] Care Team Providers Care Auditor Internal Name Role Phone Unavailable Primary Care Provider Unavailabl e Reason for Visit * Reason Onset Date Comments Medication Refill 05/02/2022 Encounter Details Date Type Department Care Team (Late st Contact Info) Description 05/02/2022 Refill [facility]EMG Internal Medicine [place] [address] [place] [address] Trenton Duque MD [address] [place] [facility] 100 [place] [address] Medication Refill Social History Tobacco Use Types [...]
--- OUTSIDE RECORDS SUMMARY | 2024-04-11 10:53 | XMS_ITS | Encounter Summary ---
Author Organization [facility] Address [address] [place] [address] Care Team Providers Care Deputy Director Name Role Phone Trenton Duque MD Primary Care Provider [phone] Reason for Visit * Reason Comments Medication Refill Encounter Details Date Type Department Care Team (Late st Contact Info) Description 03/06/2020 Refill NE STEVE [place] [address] [phone] Cecelia Davidson MD [address] [place] [address] Medication Refill Social History Tobacco [...] documented as of this encounter Care Teams Deputy Director Relationship Specialty Start Date End Date Trenton Duque MD [address] [facility] [address] [place] [address] PCP - General Internal Medicine 11/10/19 04/07/22 documented as of this encounter
--- OUTSIDE RECORDS SUMMARY | 2024-04-11 10:53 | XMS_ITS | Encounter Summary ---
Author Organization [facility] Address [address] [place] [address] Care Team Providers Care Mechanic Recovery Name Role Phone Trenton Duque MD Primary Care Provider [phone] Reason for Visit * Reason Comments Medication Refill Encounter Details Date Type Department Care Team (Late st Contact Info) Description 01/17/2021 Refill [facility] WIL[facility] [place] [address] [phone] Cecelia Davidson MD [address] [place] [address] Medication Refill Social History Tobacco [...] documented as of this encounter Care Teams Mechanic Recovery Relationship Specialty Start Date End Date Trenton Duque MD [address] [facility] [address] [place] [phone] PCP - General Internal Medicine 11/10/19 04/07/22 documented as of this encounter
--- OUTSIDE RECORDS SUMMARY | 2024-04-11 10:53 | XMS_ITS | Clinical Summary ---
Author Organization [place] [facility] Address [address] [place] [address] Phone Care Team Providers Care Chiller Technician Name Role Phone Unavailable Primary Care Provider [...] Care Team Description 03/09/2024 Refill NE OBG[facility] [place] [address] [place] [address] Cecelia Davidson MD Medication Refill 03/05/2024 Refill [facility] [place] [address] [place] [address] Cecelia Davidson MD Medication Refill from Last [...] Name Priority Date/Time Associated Diagnosis Comments CYTOLOGY MARKETING CONSULTANT CASES (GH LMW) Routine 10/16/2022 3:07 PM EDT Well woman exam with routine gynecological exam from Last 3 Months or Most Recently Relevant to Health Maintenance Results * Cytology Industrial Servicer (GH LMW) (10/16/2022 3:07 PM EDT) Case Report Cytology Industrial Servicer ?Case: [id number] ? Authorizing Provider: ??Cecelia Davidson MD ?? Collected: ? 10/16/2022 03:07 PM ? Ordering Location: ? [facility] ? Received: ?10/17/2022 11:08 AM ? First Screen: ?Suly Brooke [place] ? (ASCP) ? Specimen: ?SurePath Pap Test, Cervix/Endocervix ? 3 7:15 AM [facility] DEPARTMENT OF PATHOLOGY Specimen Source Cervix/Endocervix 3 7:15 AM [facility] DEPARTMENT OF PATHOLOGY Specimen Adequacy Satisfactory. Endocervical transformation zone component is not identified. 3 7:15 AM [facility] DEPARTMENT OF PATHOLOGY Interpretation Negative for intraepithelial lesion or malignancy. 3 7:15 AM [facility] DEPARTMENT OF PATHOLOGY This electronic signature indicates that the pathologist has personally reviewed the available gross and/or microscopic material and has based the diagnosis on that review. 3 7:15 AM [facility] DEPARTMENT OF PATHOLOGY Clinical History Routine 10/22/19 2 3 7:15 AM [facility] DEPARTMENT OF PATHOLOGY Chemical Weigher Signature Suly Brooke CT (ASCP) 3 7:15 AM [facility] DEPARTMENT OF PATHOLOGY Pap and HPV Result History [id number]: Negative for intraepithelial lesion or malignancy. HPV: [id number]: Not Detected 3 7:15 AM [facility] DEPARTMENT OF PATHOLOGY LMP 06/2022 3 7:15 AM EDT [facility] DEPARTMENT OF PATHOLOGY Specimen Processing Information [...] reports do occur. 3 7:15 AM EDT [facility] DEPARTMENT OF PATHOLOGY Pathology Department [facility] DEPARTMENT OF PATHOLOGY [address] [place] [phone] Director: Erma Chow M.D. [place]: [id number] [place]: PFI [id number] CLIA: [id number] 3 7:15 AM EDT [facility] DEPARTMENT OF PATHOLOGY Papanicolaou smear specimen (specimen) CERVIX UTERI STRUCTURE / Unknown 10/16/2022 3:07 PM EDT 10/17/2022 11:08 AM EDT us Cecelia Davidson MD PATHOLOGY/CYTOLOGY ORDERA BLES Final Result [facility] DEPARTMENT OF PATHOLOGY [address] [place] [address], [facility] [phone] from Last 3 Months or Most Recently Relevant to Health Maintenance Insurance [place]ID [place] * Guarantor: Julia Salazar Account Type Relation to Patient Date of Phone Billing Address Personal/Family Self 1990 [address] [place] [address] [place] * Guarantor: Julia Salazar Account Type Relation to Patient Date of Phone Billing Address Personal/Family Self 1990 [address] [place] [address] [place]
--- OUTSIDE RECORDS SUMMARY | 2024-04-11 10:53 | XMS_ITS | Encounter Summary ---
Author Organization [facility] Address [address] [place] [address] Care Team Providers Care Amplifier Mechanic Name Role Phone Trenton Duque MD Primary Care Provider [phone] Reason for Visit * Reason Comments Med Change Request Encounter Details Date Type Department Care Team (Late st Contact Info) Description 09/24/2021 Refill NE OBG[facility] [place] [address] [place] [address] Cecelia Davidson MD [address] [place] [address] Med Change Request Social History [...] documented as of this encounter Care Teams Amplifier Mechanic Relationship Specialty Start Date End Date Trenton Duque MD [address] [facility] [address] [place] [phone] PCP - General Internal Medicine 11/10/19 04/07/22 documented as of this encounter
== END 2024-04-11 11:08 | disposition home or self-care (01) ==
PROVIDERS: PCP Internal Medicine; Visit Provider Internal Medicine
DX: Z00.01 Encounter for general adult medical examination with abnormal findings (principal); Z87.42 Personal history of other diseases of the female genital tract; E66.01 Morbid (severe) obesity due to excess calories; Z68.41 Body mass index [BMI] 40.0-44.9, adult; E28.2 Polycystic ovarian syndrome; L30.9 Dermatitis, unspecified; J45.20 Mild intermittent asthma, uncomplicated; Z86.39 Personal history of other endocrine, nutritional and metabolic disease; R73.01 Impaired fasting glucose; E03.9 Hypothyroidism, unspecified; Z71.89 Other specified counseling; Z00.00 Encounter for general adult medical examination without abnormal findings

== ENCOUNTER → 2024-04-11 10:02 | Outpatient (BNVA) | payer OTHER, SELFPAY | PROVIDERS: PCP Internal Medicine; Visit Provider Internal Medicine | DX: Z00.01 Encounter for general adult medical examination with abnormal findings (principal); E66.01 Morbid (severe) obesity due to excess calories; Z68.41 Body mass index [BMI] 40.0-44.9, adult; L30.9 Dermatitis, unspecified; J45.20 Mild intermittent asthma, uncomplicated; R73.01 Impaired fasting glucose; E03.9 Hypothyroidism, unspecified; Z79.84 Long term (current) use of oral hypoglycemic drugs; Z79.899 Other long term (current) drug therapy; Z87.42 Personal history of other diseases of the female genital tract; Z86.39 Personal history of other endocrine, nutritional and metabolic disease; Z71.89 Other specified counseling | CPT/HCPCS: 96127 ==

== ENCOUNTER 2024-07-12 13:37 | Outpatient (AMB) | payer OTHER, SELFPAY ==
[2024-07-12 13:55] VITALS: BP 122/80; PULSE 94; RESP 15; TEMP 36.7; O2SAT 98; BMI 39.6
--- NOTE | 2024-07-12 13:55 | A.OFFPC_ITS ---
Vital Signs 07/12/24 13:55 Height 5 ft 4 in Weight 231 lb BMI 39.6 BP 122/80 Blood Pressure Location Rt brachial Position Sitting Respiration 15 Pulse 94 Pulse Source Pulse Oximeter Temp 98.0 F Temp Source Oral Pulse Oximetry (%) 98 Oxygen Delivery Method Room Air Intake Visit Reasons: discuss wgt loss options Intake Note: Pt is here today to discuss wgt loss options Allergies No Known Allergies Allergy (Verified 07/16/24 09:17) Medication List - Last Reconciled 07/16/24 by Alisha Fay MD albuterol sulfate 90 mcg/actuation (ProAir RespiClick) 1 inh inhalation Q4-6H PRN cetirizine (All Day Allergy (cetirizine)) 10 mg PO DAILY PRN cholecalciferol (vitamin D3) 1,250 mcg PO QWEEK 3 months clobetasol 0.05% 1 appl topical DAILY PRN 10 days levothyroxine 25 mcg PO DAILY meclizine 12.5 mg PO BID-QID PRN metformin ER 1,500 mg PO DAILY [mingo and D chiro with Inositol w/MTHF Folate +Vitamin D3 4x capsules ] omeprazole 20 mg PO DAILY PRN sertraline 25 mg PO DAILY Zepbound (tirzepatide (weight loss)) 2.5 mg (0.5 mL) subcut QWEEK NS Tobacco use date assessed: 07/12/24 Dental Screening Dental Screen Date: 07/12/24 Did you have a dental visit in the last 12 months?: No Did you have a dental problem in the last 6 months where you did not have access to dental care?: No Was dental information given to patient?: No HPI HPI Comments History of Present Illness Details 34-year-old lady with history of morbid obesity, polycystic ovarian syndrome, prediabetes, history of infertility, mild intermittent asthma, and hypothyroidism, here today discuss treatment options for weight loss. She has been participating in an exercise program, has seen aircraft layout worker for dietary guidance. She was on Wegovy, and was able to lose more than 10 lb while on it but had to stop as it was not covered by insurance anymore. [facility] Medical History (Updated 07/16/24 @ 09:37 by Alisha Fay MD) Obesity (BMI 30-39.9) PCOS (polycystic ovarian syndrome) Eczema Mild intermittent asthma History of vitamin D deficiency Impaired fasting glucose Hypothyroidism Surgical History No pertinent past surgical history Family History Father No problems noted. Mother No problems noted. Social History Housing: Apartment Patient Tobacco Use Status: Never used Tobacco e-Cigarette/Vaping Use: Never Used service: No Current occupational status: employed and unemployed Cognitive needs: No Hearing needs: No Vision needs: No Questionnaire Thrive Questionnaire Date Thrive assessed: 04/08/24 I am a: Patient What is your living situation today?: I have a steady place to live Within the past 12 months, did the food you bought not last and you didn't have the money to get more?: Never true Within the past 12 months, did you worry whether your food would run out before you got money to buy more?: Never true Do you have trouble paying for medicines?: No Do you have trouble getting transportation to medical appointments?: No Do you have trouble paying your heating and electricity bill?: No Do you have trouble taking care of your child, family member or friend?: No Do you have trouble with day-to-day activities such as bathing, preparing meals, shopping, managing finances, etc.?: No Are you currently unemployed and looking for a job?: I choose not to answer this question Are you interested in more education?: No Please select the resources that you would like help with: None Currently or been in a relationship where the following occur: No concerns reported THRIVE Score: 0 MARTHA-7 AMB Questionnaire MARTHA-7 Date MARTHA - 7 assessed: 01/04/24 Source: Developed by Drs. Ari Woody, Karol Forrester, Jose Bee and colleagues, with an educational maria luisa from [employer]. Review of Systems Const Denies body aches, Denies fatigue, Denies fever(s) and Denies weakness Eyes Denies change in vision ENT Reports no additional complaints Card Denies chest pain, Denies lightheadedness, Denies palpitations and Denies dyspnea Resp Denies chest congestion, Denies cough, Denies dyspnea and Denies wheezing GI Denies abdominal pain and Denies change in bowel habits Denies hematuria, Denies urinary frequency, Denies dysuria and Denies urinary urgency Musc Reports no additional complaints Skin/Breast Denies breast pain, Denies breast mass, Denies lesions and Denies rash Neuro Denies weakness Psych Reports no additional complaints Endo Denies fatigue, Denies polydipsia, Denies polyuria and Denies palpitations Jose Alberto/Lymph Denies easy bruising Aller/Immun Denies seasonal rhinorrhea and Denies wheezing Physical exam (Primary Care) Vital Signs: Last Vital Signs Temp 98.0 F 07/12/24 13:55 Pulse 94 07/12/24 13:55 Resp 15 07/12/24 13:55 BP 122/80 07/12/24 13:55 Pulse Ox 98 07/12/24 13:55 Oxygen Delivery Method Room Air 07/12/24 13:55 BMI result Body Mass Index 39.6 BMI Assessment/Plan discussion: High BMI High, discussed plan: lifestyle, weight reduction, physical activity and other (Prescription sent Zepbound) Tobacco/Smoking Status: Tobacco use Status Tobacco use date assessed 07/12/24 07/12/24 13:59 Patient Tobacco Use Status Never used Tobacco 07/12/24 13:59 e-Cigarette/Vaping Use Never Used 07/12/24 13:59 Thrive Assessment: Date of Thrive Assessment Date Thrive assessed 04/08/24 07/12/24 13:59 Currently or been in a relationship where the following occur: No concerns reported Const General: no acute distress and alert Nutritional Appearance: obese Orientation/consciousness: patient oriented x3 HENMT Ears: external ears normal General nose exam: Normal external nose present Mouth: Normal oral and palatal mucosa present, oropharynx normal and moist mucous membranes Eyes General: appearance normal, both eyes and all related structures Conjunctivae: conjunctivae normal Sclerae: sclerae normal Pupils: Equal, round and reactive pupils present EOM: EOMs intact bilaterally Neck Neck: Yes full ROM, Yes no lymphadenopathy and Yes supple Resp Effort & Inspection: normal respiratory effort and able to speak in complete sentences Auscultation: clear to auscultation bilaterally Cardio Rate: regular rate Rhythm: regular rhythm Heart sounds: S1 normal heart sound present and S2 normal heart sound present GI Palpation (GI): Soft to palpation, nontender and no masses Auscultation: normal bowel sounds Other: Goes [facility] her own OBGYN at [facility] Back/Spine/Pelvis Back: No back tenderness Skin General skin exam: no rashes or lesions noted Neuro General: patient oriented x3, gait normal, tone normal, moves all extremities, Normal light touch and pain sensation and no focal motor deficits Cranial nerves: Yes CN's II-XII intact bilaterally and Yes Equal, round and reactive pupils present Cognition (Neuro): normal cognition Extrem General: Yes full ROM, Yes no joint enlargement, Yes no clubbing, cyanosis or edema and Yes no calf tenderness Psych Appearance: grossly normal and well kempt Mental Status: mental status grossly normal Speech and movement: Normal speech and movement present Affect: normal affect Attitude: cooperative Thought process: Normal thought process present Coding Level of Care Code Est Pt Level 4 (02308) Diagnoses Obesity (BMI 30-39.9) E66.9 PCOS (polycystic ovarian syndrome) E28.2 Impaired fasting glucose R73.01 Acquired hypothyroidism E03.9 Hypothyroidism type: acquired Vitamin D deficiency E55.9 Assessment & Plan Assessment & Plan (1) Obesity (BMI 30-39.9): Code(s): E66.9 - Obesity, unspecified Category: Medical Plan: Prescription sent for Zepbound 2.5 mg, injected subcutaneously once a week. Patient instructed on proper administration of medication and possible side effects that she might encounter. Continued adherence to lifestyle changes with healthy eating habits and doing regular exercise at least 30 minutes of moderate intensity exercise 3 to 4 times a week. See her back for follow-up in 2 months (2) PCOS (polycystic ovarian syndrome): Comment: sees [facility] OB[facility] Code(s): E28.2 - Polycystic ovarian syndrome Category: Medical Plan: Currently on metformin, followed by [facility] (3) Impaired fasting glucose: Code(s): R73.01 - Impaired fasting glucose Category: Medical Plan: Your previous fasting blood sugars were elevated above 100 mg/dL. Impaired glucose metabolism increases the risk for developing diabetes mellitus type 2, as well as heart attack and stroke later on. Lifestyle changes that promotes weight loss, healthy eating habits, and regular exercise are important, and can prevent the progression to diabetes. Labs ordered to check basic metabolic panel and hemoglobin A1c (4) Hypothyroidism: Code(s): E03.9 - Hypothyroidism, unspecified Category: Medical Qualifiers: Hypothyroidism type: acquired Qualified Code(s): E03.9 - Hypothyroidism, unspecified Plan: Currently on levothyroxine 25 mcg daily, labs ordered to check TSH and free T4 levels (5) Vitamin D deficiency: Code(s): E55.9 - Vitamin D deficiency, unspecified Plan: Will check vitamin-D level, in the meantime continue taking vitamin-D 3 supplements Orders: Orders Thyroid Stimulating Hormone 09/03/24 E03.9 - Hypothyroidism, unspecified, E28.2 - Polycystic ovarian syndrome, E55.9 - Vitamin D deficiency, unspecified, E66.01 - Morbid (severe) obesity due to excess calories, R73.01 - Impaired fasting glucose, Z68.41 - Body mass index [BMI] 40.0-44.9, adult, Z86.39 - Personal history of other endocrine, nutritional and metabolic disease Free T4 (Free Thyroxine) 09/03/24 E03.9 - Hypothyroidism, unspecified, E28.2 - Polycystic ovarian syndrome, E55.9 - Vitamin D deficiency, unspecified, E66.01 - Morbid (severe) obesity due to excess calories, R73.01 - Impaired fasting glucose, Z68.41 - Body mass index [BMI] 40.0-44.9, adult, Z86.39 - Personal history of other endocrine, nutritional and metabolic disease Basic Metabolic Panel Fasting 09/03/24 E03.9 - Hypothyroidism, unspecified, E28.2 - Polycystic ovarian syndrome, E55.9 - Vitamin D deficiency, unspecified, E66.01 - Morbid (severe) obesity due to excess calories, R73.01 - Impaired fasting glucose, Z68.41 - Body mass index [BMI] 40.0-44.9, adult, Z86.39 - Personal history of other endocrine, nutritional and metabolic disease Alanine Aminotransferase 09/03/24 E03.9 - Hypothyroidism, unspecified, E28.2 - Polycystic ovarian syndrome, E55.9 - Vitamin D deficiency, unspecified, E66.01 - Morbid (severe) obesity due to excess calories, R73.01 - Impaired fasting glucose, Z68.41 - Body mass index [BMI] 40.0-44.9, adult, Z86.39 - Personal history of other endocrine, nutritional and metabolic disease Hemoglobin A1c 09/03/24 E03.9 - Hypothyroidism, unspecified, E28.2 - Polycystic ovarian syndrome, E55.9 - Vitamin D deficiency, unspecified, E66.01 - Morbid (severe) obesity due to excess calories, R73.01 - Impaired fasting glucose, Z68.41 - Body mass index [BMI] 40.0-44.9, adult, Z86.39 - Personal history of other endocrine, nutritional and metabolic disease Aspartate Amino Transferase 09/03/24 E03.9 - Hypothyroidism, unspecified, E28.2 - Polycystic ovarian syndrome, E55.9 - Vitamin D deficiency, unspecified, E66.01 - Morbid (severe) obesity due to excess calories, R73.01 - Impaired fasting glucose, Z68.41 - Body mass index [BMI] 40.0-44.9, adult, Z86.39 - Personal history of other endocrine, nutritional and metabolic disease Vitamin D 25-OH Total 09/03/24 E03.9 - Hypothyroidism, unspecified, E28.2 - Polycystic ovarian syndrome, E55.9 - Vitamin D deficiency, unspecified, E66.01 - Morbid (severe) obesity due to excess calories, R73.01 - Impaired fasting glucose, Z68.41 - Body mass index [BMI] 40.0-44.9, adult, Z86.39 - Personal history of other endocrine, nutritional and metabolic disease Medications: New Zepbound (tirzepatide (weight loss)) Has PCOS, currently on metformin, needs to lose weight, has tried Wegovy 2.5 mg (0.5 mL) subcut QWEEK 2 mL 2RF NS E28.2 - Polycystic ovarian syndrome, E66.01 - Morbid (severe) obesity due to excess calories, R73.01 - Impaired fasting glucose, Z68.41 - Body mass index [BMI] 40.0-44.9, adult
--- OUTSIDE RECORDS SUMMARY | 2024-07-12 14:44 | XMS_ITS | Encounter Summary ---
Author Organization [facility] Address [address] [place] [address] Care Team Providers Care Stock Clerk Self Service Store Name Role Phone Unavailable Primary Care Provider Unavailabl e Reason for Visit * Reason Onset Date Comments Medication Refill 05/02/2022 Encounter Details Date Type Department Care Team (Late st Contact Info) Description 05/02/2022 Refill NE STEVE [place] [address] [phone] Cecelia Davidson MD [address] [place] [address] Medication Refill Social History Tobacco [...]
--- OUTSIDE RECORDS SUMMARY | 2024-07-12 14:44 | XMS_ITS | Encounter Summary ---
Author Organization [facility] Address [address] [place] [address] Care Team Providers Care Photo Journalist Name Role Phone Trenton Duque MD Primary Care Provider [phone] Reason for Visit * Reason Onset Date Comments Medication Refill 06/08/2020 Encounter Details Date Type Department Care Team (Late st Contact Info) Description 06/08/2020 Refill NE STEVE [place] [address] [phone] Cecelia Davidson MD [address] [place] [address] Medication Refill Social History Tobacco [...] on filedocumented in this encounter Care Teams Photo Journalist Relationship Specialty Start Date End Date Trenton Duque MD [address] [address] PCP - General Internal Medicine 11/10/19 04/07/22 documented as of this encounter
--- OUTSIDE RECORDS SUMMARY | 2024-07-12 14:44 | XMS_ITS | Encounter Summary ---
Author Organization [facility] Address [address] [place] [address] Care Team Providers Care Warp Bleaching Vat Tender Name Role Phone Unavailable Primary Care Provider Unavailabl e Reason for Visit * Reason Comments Medication Refill Encounter Details Date Type Department Care Team (Late st Contact Info) Description 12/30/2022 Refill [facility] [place] [address] [address] [place] [address] Trenton Duque MD [address] [facility] [address] [place] [phone] Medication Refill Social History Tobacco Use Types [...]
--- OUTSIDE RECORDS SUMMARY | 2024-07-12 14:44 | XMS_ITS | Encounter Summary ---
Author Organization [facility] Address [address] [place] [address] Care Team Providers Care Bottle House Cleaners Supervisor Name Role Phone Trenton Duque MD Primary Care Provider [phone] [phone] Reason for Visit * Reason Comments Medication Refill Encounter Details Date Type Department Care Team (Late st Contact Info) Description 04/04/2020 Refill NE STEVE [place] [address] [phone] Cecelia Davidson MD [address] [place] [address] Medication Refill Social History Tobacco [...] on filedocumented in this encounter Care Teams Bottle House Cleaners Supervisor Relationship Specialty Start Date End Date Trenton Duque MD [address] [facility] [address] [place] [address] PCP - General Internal Medicine 11/10/19 04/07/22 documented as of this encounter
--- OUTSIDE RECORDS SUMMARY | 2024-07-12 14:44 | XMS_ITS | Encounter Summary ---
Author Organization [facility] Address [address] [place] [address] Care Team Providers Care Staple Side Laster Name Role Phone Trenton Duque MD Primary Care Provider [phone] Reason for Visit * Reason Comments Med Change Request Encounter Details Date Type Department Care Team (Late st Contact Info) Description 09/24/2021 Refill NE OBGYN [place] [address] [phone] Cecelia Davidson MD [address] [place] [address] Med Change Request Social History [...] documented as of this encounter Care Teams Staple Side Laster Relationship Specialty Start Date End Date Trenton Duque MD [address] [facility] [address] [place] [address] PCP - General Internal Medicine 11/10/19 04/07/22 documented as of this encounter
--- OUTSIDE RECORDS SUMMARY | 2024-07-12 14:44 | XMS_ITS | Encounter Summary ---
Author Organization [facility] Address [address] [place] [address] Care Team Providers Care Kennel Operator Name Role Phone Unavailable Primary Care Provider Unavailabl e Encounter Details Date Type Department Care Team (Late st Contact Info) Description 04/17/2023 Scanned Document NE OBN [place] [address] [place] [address] Cecelia Davidson MD [address] [place] [address] Social History Tobacco Use Types [...]
--- OUTSIDE RECORDS SUMMARY | 2024-07-12 14:44 | XMS_ITS | Encounter Summary ---
Author Organization [facility] Address [address] [place] [address] Care Team Providers Care Transit Clerk Name Role Phone Unavailable Primary Care Provider Unavailabl e Reason for Visit * Reason Comments Med Change Request Encounter Details Date Type Department Care Team (Late st Contact Info) Description 04/16/2023 Refill NE OBGYN [place] [address] [place] [address] Cecelia Davidson MD [address] [place] [address] Med Change Request Social History Tobacco Use [...]
--- OUTSIDE RECORDS SUMMARY | 2024-07-12 14:44 | XMS_ITS | Encounter Summary ---
Author Organization [facility] ou and Home Health Address [address] [place] [address] Care Team Providers Care Ammunition Assembly Ii Laborer Name Role Phone Trenton Duque MD Primary Care Provider +1 -[phone] Reason for Visit * Reason Comments Medication Refill Encounter Details Date Type Department Care Team (Late st Contact Info) Description 03/06/2020 Refill NE STEVE [place] [address] [place] [id number] Cecelia Davidson MD [address] [place] [address] Medication Refill Social History Tobacco [...] documented as of this encounter Care Teams Ammunition Assembly Ii Laborer Relationship Specialty Start Date End Date Trenton Duque MD [address] [place] [address] [place] [address] PCP - General Internal Medicine 11/10/19 04/07/22 documented as of this encounter
--- OUTSIDE RECORDS SUMMARY | 2024-07-12 14:44 | XMS_ITS | Encounter Summary ---
Author Organization [facility] ou and Home Health Address [address] [place] [address] Care Team Providers Care Geosciences Associate Professor Name Role Phone Trenton Duque MD Primary Care Provider +1 -[phone] Reason for Visit * Reason Comments Medication Refill Encounter Details Date Type Department Care Team (Late st Contact Info) Description 01/17/2021 Refill NE STEVE [place] [address] [place] [address] Cecelia Davidson MD [address] [place] [address] Medication Refill Social History Tobacco [...] documented as of this encounter Care Teams Geosciences Associate Professor Relationship Specialty Start Date End Date Trenton Duque MD [address] [facility] [address] [place] [phone] PCP - General Internal Medicine 11/10/19 04/07/22 documented as of this encounter
--- OUTSIDE RECORDS SUMMARY | 2024-07-12 14:44 | XMS_ITS | Encounter Summary ---
Author Organization [facility] ou and Home Health Address [address] [place] [address] Care Team Providers Care Yarn Dry Room Worker Name Role Phone Trenton Duque MD Primary Care Provider +1 -[phone] Reason for Visit * Reason Comments Medication Refill Encounter Details Date Type Department Care Team (Late st Contact Info) Description 03/13/2020 Refill NEM Internal Medicine [place] [address] [place] [phone] Trenton Duque MD [address] [facility] [address] [place] [address] Medication Refill Social History Tobacco [...] documented as of this encounter Care Teams Yarn Dry Room Worker Relationship Specialty Start Date End Date Trenton Duque MD [address] [facility] 100 [place] [address] PCP - General Internal Medicine 11/10/19 04/07/22 documented as of this encounter
--- OUTSIDE RECORDS SUMMARY | 2024-07-12 14:44 | XMS_ITS | Encounter Summary ---
Author Organization [facility] ou and Home Health Address [address] [place] [address] Care Team Providers Care Picture Booker Name Role Phone Trenton Duque MD Primary Care Provider +1 -[phone] Reason for Visit * Reason Onset Date Comments Medication Refill 12/19/2020 Encounter Details Date Type Department Care Team (Late st Contact Info) Description 12/19/2020 Refill [facility] Internal Medicine [place] [address] [place] [phone] Trenton Duque MD [address] [place] [facility] 100 [place] [address] Medication Refill Social History Tobacco [...] documented as of this encounter Care Teams Picture Booker Relationship Specialty Start Date End Date Trenton Duque MD [address] [facility] [address] [place] [address] PCP - General Internal Medicine 11/10/19 04/07/22 documented as of this encounter
--- OUTSIDE RECORDS SUMMARY | 2024-07-12 14:44 | XMS_ITS | Encounter Summary ---
Author Organization [facility] ou and Home Health Address [address] [place] [address] Care Team Providers Care Produce Shipper Name Role Phone Trenton Duque MD Primary Care Provider +1 -[phone] Reason for Visit * Reason Onset Date Comments Medication Refill 09/19/2020 Encounter Details Date Type Department Care Team (Late st Contact Info) Description 09/19/2020 Refill NE STEVE [place] [address] [place] [phone] Cecelia Davidson MD [address] [place] [address] Medication Refill Social History Tobacco [...] documented as of this encounter Care Teams Produce Shipper Relationship Specialty Start Date End Date Trenton Duque MD [address] [facility] [facility] 100 [place] [address] PCP - General Internal Medicine 11/10/19 04/07/22 documented as of this encounter
--- OUTSIDE RECORDS SUMMARY | 2024-07-12 14:44 | XMS_ITS | Encounter Summary ---
Author Organization [facility] ou and Home Health Address [address] [place] [address] Care Team Providers Care Defect Cutter Name Role Phone Trenton Duque MD Primary Care Provider +1 -[phone] Reason for Visit * Reason Comments Medication Refill Encounter Details Date Type Department Care Team (Late st Contact Info) Description 07/11/2020 Refill NE STEVE [place] [address] [place] [phone] Cecelia Davidson MD [address] [place] [address] Medication Refill Social History Tobacco [...] on filedocumented in this encounter Care Teams Defect Cutter Relationship Specialty Start Date End Date Trenton Duque MD [address] [facility] 100 [place] [address] PCP - General Internal Medicine 11/10/19 04/07/22 documented as of this encounter
--- OUTSIDE RECORDS SUMMARY | 2024-07-12 14:44 | XMS_ITS | Encounter Summary ---
Author Organization [facility] [place] ou and Home Health Address [address] [place] [address] Care Team Providers Care Military Cook Name Role Phone Trenton Duque MD Primary Care Provider + -[phone] Reason for Visit * Reason Comments Medication Refill Encounter Details Date Type Department Care Team (Late st Contact Info) Description 07/31/2020 Refill NEM Internal Medicine [place] [address] [place] [address] [place] [address] Trenton Duque MD [address] [address] Medication Refill Social History Tobacco [...] on filedocumented in this encounter Care Teams Military Cook Relationship Specialty Start Date End Date Trenton Duque MD [address] [place] [address] [place] [address] PCP - General Internal Medicine 9/10/20 2/6/23 documented as of this encounter
--- OUTSIDE RECORDS SUMMARY | 2024-07-12 14:44 | XMS_ITS | Encounter Summary ---
Author Organization [facility] oup and Home Health Address [address] [place] [address] Care Team Providers Care Insurance Agency Sales Manager Name Role Phone Unavailable Primary Care Provider Unavailabl e Reason for Visit * Reason Onset Date Comments Medication Refill 05/02/2022 Encounter Details Date Type Department Care Team (Late st Contact Info) Description 05/02/2022 Refill [facility] Internal Medicine [place] [address] [place] [address] Trenton Duque MD [address] [facility] [facility] 100 [place] [address] Medication Refill Social History Tobacco Use Types [...]
--- OUTSIDE RECORDS SUMMARY | 2024-07-12 14:44 | XMS_ITS | Encounter Summary ---
Author Organization [facility] ou and Home Health Address [address] [place] [address] Care Team Providers Care Senior Cytogenetics Laboratory Director Name Role Phone Trenton Duque MD Primary Care Provider +1 -[phone] Reason for Referral * Imaging (Routine) - Closed Specialty Diagnoses / Procedures Referred By Contac t Referred To Contact Diagnostic Radiology Procedures Non OB Transvaginal External, Provider Referral ID Status Reason Start Date Expiration Date Visits Re quested Visits Authorized [id number] Closed 12/12/2019 12/11/2020 1 1 Encounter Details Date Type Department Care Team (Late st Contact Info) Description 12/12/2019 Scanned Document [facility] Internal Medicine [address] [address] External, Provider Social History Tobacco Use Types [...] as of this encounter Care Teams Senior Cytogenetics Laboratory Director Relationship Specialty Start Date End Date Trenton Duque MD [address] [address] PCP - General Internal Medicine 11/10/19 04/07/22 documented as of this encounter
--- OUTSIDE RECORDS SUMMARY | 2024-07-12 14:44 | XMS_ITS | Clinical Summary ---
Author Organization [place] [facility] Address [address] [place] [address] Phone Care Team Providers Care Yard Coordinator Name Role Phone Unavailable Primary Care Provider [...] unspecified whether complicated, unspecified whether persistent 11/10/2019 Immunizations Name Administration Dates Next Due COVID-19 [...] Health Maintenance Due Date Last Done Comments HIV screening 2001 Hepatitis C screening 2006 Pneumococcal Vaccine (2 - 49 years) (1 of 2 - PCV) 06/27/2007 Tetanus adult (Td q 10,TDAP once) 2008 Covid-19 vaccine series ( season) 2023 01/16/2021, 06/25/2020, 06/04/2020 Influenza vaccine 10/31/2024 12/05/2023, , 02/05/2022 Cervical cancer screening 10/17/20272022, 05/23/2021, 12/26/2019, Additional history exists RSV Immunization (1 - 1-dose 75+ series) 06/27/2063 Meningococcal Vaccine Aged Out No kirt lalit eligible based on patient's age to complete this topic Procedures Procedure Name Priority Date/Time Associated Diagnosis Comments CYTOLOGY COMMUNITY ORGANIZATION WORKER CASES (GH LMW) Routine 10/16/2022 3:07 PM EDT Well woman exam with routine gynecological exam from Last 3 Months or Most Recently Relevant to Health Maintenance Results * Cytology Manager Of Transportation (GH LMW) (10/16/2022 3:07 PM EDT) Case Report Cytology Manager Of Transportation ?Case: [id number] ? Authorizing Provider: ??Cecelia Davidson MD ?? Collected: ? 10/16/2022 03:07 PM ? Ordering Location: ? [facility] ? Received: ?10/17/2022 11:08 AM ? First Screen: ?[place], [place] ? (ASCP) ? Specimen: ?SurePath Pap Test, Cervix/Endocervix ? 3 7:15 AM [facility] DEPARTMENT OF PATHOLOGY Specimen Source Cervix/Endocervix 3 7:15 AM [facility] DEPARTMENT OF PATHOLOGY Specimen Adequacy Satisfactory. Endocervical transformation zone component is not identified. 3 7:15 AM [facility] DEPARTMENT OF PATHOLOGY Interpretation Negative for intraepithelial lesion or malignancy. 3 7:15 AM [facility] DEPARTMENT OF PATHOLOGY This electronic signature indicates that the pathologist has personally reviewed the available gross and/or microscopic material and has based the diagnosis on that review. 3 7:15 AM [facility] DEPARTMENT OF PATHOLOGY Clinical History Routine 10/22/19 2 3 7:15 AM [facility] DEPARTMENT OF PATHOLOGY Textile Colorist Dyer Signature Suly [place] (ASCP) 3 7:15 AM [facility] DEPARTMENT OF PATHOLOGY Pap and HPV Result History [id number]: Negative for intraepithelial lesion or malignancy. HPV: [id number]: Not Detected 3 7:15 AM [facility] DEPARTMENT OF PATHOLOGY LMP 06/2022 3 7:15 AM [facility] DEPARTMENT OF PATHOLOGY Specimen [...] reports do occur. 3 7:15 AM EDT [facility] DEPARTMENT OF PATHOLOGY Pathology Department [facility] DEPARTMENT OF PATHOLOGY [address] [place] [address] Director: Erma Chow M.D. [place]: [id number] [place]: [id number] CLIA: [id number] 3 7:15 AM EDT [facility] DEPARTMENT OF PATHOLOGY Papanicolaou smear specimen (specimen) CERVIX UTERI STRUCTURE / Unknown 10/16/2022 3:07 PM EDT 10/17/2022 11:08 AM EDT us Cecelia Davidson MD PATHOLOGY/CYTOLOGY ORDERA BLES Final Result [facility] DEPARTMENT OF PATHOLOGY [address] [place] [address] from Last 3 Months or Most Recently Relevant to Health Maintenance Insurance * Guarantor: Julia Salazar Account Type Relation to Patient Date of Phone Billing Address Personal/Family Self 1990 [address] [facility] [address] [place] [address] [place] * Guarantor: Julia Salazar Account Type Relation to Patient Date of Phone Billing Address Personal/Family Self 1990 [address] [place] [address] [place] * Guarantor: Julia Salazar Account Type Relation to Patient Date of Phone Billing Address Personal/Family Self 1990 [address] [place] [address] [place] Member Subscriber Plan / Payer (Ef fective 2019-Present) Name:Jayjay Salazarina Relation to Subscriber:Self Name:Jayjay Salazarina Payer ID:[id number] Group ID:Not on file Type:Not on file Address: [address] [place] [id number]
--- OUTSIDE RECORDS SUMMARY | 2024-07-12 14:44 | XMS_ITS | Encounter Summary ---
Author Organization [facility] ou and Home Health Address [address] [place] [address] Care Team Providers Care Rn Spine Name Role Phone Trenton Duque MD Primary Care Provider +1 -[phone] Reason for Visit * Reason Onset Date Comments Medication Refill 09/19/2020 Encounter Details Date Type Department Care Team (Late st Contact Info) Description 09/19/2020 Refill [facility] Internal Medicine [place] [address] [place] [phone] Trenton Duque MD [address] [facility] 100 [place] [address] Medication Refill Social History Tobacco [...] documented as of this encounter Care Teams Rn Spine Relationship Specialty Start Date End Date Trenton Duque MD [address] [facility] [address] [place] [address] PCP - General Internal Medicine 11/10/19 04/07/22 documented as of this encounter
--- OUTSIDE RECORDS SUMMARY | 2024-07-12 14:44 | XMS_ITS | Encounter Summary ---
Author Organization [facility] ou and Home Health Address [address] [place] [address] Care Team Providers Care Oxyacetylene Welder Name Role Phone Trenton Duque MD Primary Care Provider +1 -[phone] Reason for Visit * Reason Comments Medication Refill Encounter Details Date Type Department Care Team (Late st Contact Info) Description 11/16/2020 Refill NE STEVE [place] [address] [place] [phone] Cecelia Davidson MD [address] [place] [address] Medication Refill Social History Tobacco [...] documented as of this encounter Care Teams Oxyacetylene Welder Relationship Specialty Start Date End Date Trenton Duque MD [address] [facility] 100 [place] [address] PCP - General Internal Medicine 11/10/19 04/07/22 documented as of this encounter
--- OUTSIDE RECORDS SUMMARY | 2024-07-12 14:44 | XMS_ITS | Encounter Summary ---
Author Organization [facility] oup and Home Health Address [address] [place] [address] Care Team Providers Care Machine Sand Mixer Name Role Phone Unavailable Primary Care Provider Unavailabl e Encounter Details Date Type Department Care Team (Late st Contact Info) Description 04/17/2023 Scanned Document NE OBN [place] 500 [place] [address] Cecelia Davidson MD [address] [place] [address] Social History Tobacco Use Types [...]
--- OUTSIDE RECORDS SUMMARY | 2024-07-12 14:44 | XMS_ITS | Encounter Summary ---
Author Organization [facility] Address [address] [place] [address] Care Team Providers Care Fire Protection Engineering Technician Name Role Phone Trenton Duque MD Primary Care Provider +1 -[phone] Encounter Details Date Type Department Care Team (Late st Contact Info) Description 03/16/2020 Lab Requisition [facility] [address] [place] [address] Darian Yi MD [address] [place] [phone] Encounter for screening for other viral diseases [...] Date/Time Associated Diagnosis Comments SARS COV-2 (COVID-19) [facility] ([facility]) Routine 03/16/2020 8:55 PM EST Encounter for screening for other viral diseases documented in this encounter Results * SARS CoV-2 (COVID-19) [facility] (Healthcare Worker) ([facility] LMW [facility]) (03/16/2020 8:55 PM EST) SARS-CoV-2 Specimen Source Nasopharynx 03/19/2020 2:26 AM [facility] SARS-CoV-2 Patient Race Unknown 03/19/2020 2:26 AM [facility] SARS-CoV-2 Patient Ethnicity Unknown 03/19/2020 2:26 AM [facility] SARS-CoV-2 RNA [place] Undetected Undetected 03/19/2020 2:26 AM [facility] [...] PCR test uses the preethi SARS-CoV-2 assay ([employer] and is performed on the preethi ThirdLove0 System. It has received Emergency Use Authorization (EUA) by the U.S. Food and Drug Administration. Performance characteristics were verified by [facility] in a manner consistent with CLIA requirements. Fact sheets for this Emergency Use Authorization (EUA) can be found at the following links: https://www.fda.gov/media/931352/download for Healthcare Providers https://www.fda.gov/media/537631/download for Patients Test Performed by: [facility] [place] [address] Shag Truck Driver: Robert Mata M.D. Ph.D.; CLIA# [id number] Viral NASOPHARYNGEAL STRUCTURE / Unknown 03/16/2020 8:55 PM EST 03/16/2020 8:55 PM EST Darian Yi MD MICROBIOLOGY - GENERAL ORD ERABLES Final Result [facility] documented in this encounter Visit Diagnoses Diagnosis Encounter for screening for other viral diseases documented in this encounter Additional Health Concerns Infection Onset Date Last Indicated Resolved Time R/O COVID-19 03/16/2020 03/16/2020 03/19/2020 3:29 AM EST documented as of this encounter Care Teams Fire Protection Engineering Technician Relationship Specialty Start Date End Date Trenton Duque MD [address] [facility] 100 [place] [address] PCP - General Internal Medicine 11/10/19 04/07/22 documented as of this encounter
--- OUTSIDE RECORDS SUMMARY | 2024-07-12 14:44 | XMS_ITS | Encounter Summary ---
Author Organization [facility] ou and Home Health Address [address] [place] [address] Care Team Providers Care Brand Engineer Name Role Phone Trenton Duque MD Primary Care Provider + -[phone] Reason for Visit * Reason Comments Medication Refill Encounter Details Date Type Department Care Team (Late st Contact Info) Description 07/31/2020 Refill NEM Internal Medicine [place] [address] [place] [address] [place] [address] Trenton Duque MD [address] [address] Medication Refill Social History Tobacco [...] on filedocumented in this encounter Care Teams Brand Engineer Relationship Specialty Start Date End Date Trenton Duque MD [address] [place] [address] [place] [address] PCP - General Internal Medicine 9/10/20 2/6/23 documented as of this encounter
--- OUTSIDE RECORDS SUMMARY | 2024-07-12 14:44 | XMS_ITS | Encounter Summary ---
Author Organization [facility] Address [address] [place] [address] Care Team Providers Care Chief Embalmer Name Role Phone Trenton Duque MD Primary Care Provider +1 -[phone] Encounter Details Date Type Department Care Team (Latest Contact Info) Description 09/13/2020 Transcribed Orders [facility]ens [address] [place] [address] Cecelia Davidson MD [address] [place] [address] Routine general medical examination at [...] 163 See Comment ng/dL 09/13/2020 8:05 PM [facility] DEPARTMENT OF PATHOLOGY Comment: Females: Premenopause: 21 - 60 Years Old ? 9 - 48 ng/dL Postmenopause: >=45 Years Old ?<7 - 46 ng/dL Sex Hormone Binding Globulin 69 See Comment nmol/L 09/13/2020 8:05 PM [facility] DEPARTMENT OF PATHOLOGY Comment: Females: Premenopause: 21 - 60 Years Old ? 11 - >180 nmol/L Postmenopause: >=45 Years Old ?23 - 159 nmol/L Free Testosterone Index 8.19 See Comment Index 09/13/2020 8:05 PM [facility] DEPARTMENT OF PATHOLOGY Comment: Females: Premenopause: 21 - 60 Years Old ?0.27 - 7.64 Index Postmenopause: >=45 Years Old ? 0.17 - 4.15 Index Blood Venipuncture / Unknown 09/13/2020 5:45 PM EDT 09/13/2020 5:46 PM EDT us Cecelia Davidson MD LAB BLOOD ORDERABLES Clarissa l Result [facility] DEPARTMENT OF PATHOLOGY [address] [place] [address] documented in this encounter Visit Diagnoses Diagnosis Routine general medical examination at a health care facility- Primary documented in this encounter Additional Health Concerns Assessment Noted Time PHQ-9 Depression Total Score: 0 09/14/19 9:35 AM EDT documented as of this encounter Care Teams Chief Embalmer Relationship Specialty Start Date End Date Trenton Duque MD [address] [place] [address] [place] [address] PCP - General Internal Medicine 11/10/19 04/07/22 documented as of this encounter
--- OUTSIDE RECORDS SUMMARY | 2024-07-12 14:44 | XMS_ITS | Encounter Summary ---
Author Organization [facility] ou and Home Health Address [address] [place] [address] Care Team Providers Care Dance Director Name Role Phone Trenton Duque MD Primary Care Provider +1 -[phone] Reason for Visit * Reason Comments Medication Refill Encounter Details Date Type Department Care Team (Late st Contact Info) Description 04/27/2020 Refill NEM Internal Medicine [place] [address] [place] [address] [place] [phone] Trenton Duque MD [address] [facility] [facility] [address] [place] [address] Medication Refill Social History Tobacco [...] on filedocumented in this encounter Care Teams Dance Director Relationship Specialty Start Date End Date Trenton Duque MD [address] [facility] 100 [place] [address] PCP - General Internal Medicine 11/10/19 04/07/22 documented as of this encounter
--- OUTSIDE RECORDS SUMMARY | 2024-07-12 14:44 | XMS_ITS | Encounter Summary ---
Author Organization [facility] Address [address] [place] [address] Care Team Providers Care Machinist Apprentice Name Role Phone Trenton Duque MD Primary Care Provider +1 -[phone] Encounter Details Date Type Department Care Team (Late st Contact Info) Description 09/10/2020 Orders Only [facility] Spec[facility]ens [address] [place] [address] Cecelia Davidson MD [address] [place] [address] Hypouricemia (Primary Dx) Social History [...] <1.00 <=2.00 IU/L 05/25/2021 9:40 PM EDT [facility] Comment: This test was performed using the TRAb Antibody HI method which is standardized against the 1st International Standard 90/672 and is reported in International Units (IU/L). The reference range reported was established specifically for this test method. Test Performed at: [facility] [address] ??[address] Nathan Slater M.D., Ph.D.,Director of Laboratories Blood Venipuncture / Unknown 05/21/2021 1:59 PM EDT 05/21/2021 1:59 PM EDT us Cecelia Davidson MD LAB BLOOD ORDERABLES Clarissa pedro Result [facility] documented in this encounter Visit Diagnoses Diagnosis Hypouricemia- Primary Other abnormal blood chemistry documented in this encounter Additional Health Concerns Assessment Noted Time PHQ-9 Depression Total Score: 0 09/11/19 21 12:02 PM EDT documented as of this encounter Care Teams Machinist Apprentice Relationship Specialty Start Date End Date Trenton Duque MD [address] [place] [address] [facility] 100 [place] [address] PCP - General Internal Medicine 11/10/19 04/07/22 documented as of this encounter
--- OUTSIDE RECORDS SUMMARY | 2024-07-12 14:45 | XMS_ITS | Encounter Summary ---
Author Organization [facility] Address [address] [place] [address] Care Team Providers Care Fuel Cell Technician Name Role Phone Trenton Duque MD Primary Care Provider [phone] Reason for Visit * Reason Comments Medication Refill Encounter Details Date Type Department Care Team (Late st Contact Info) Description 03/16/2021 Refill NEM Internal Medicine [place] [address] [place], [place] [phone] Trenton Duque MD [address] [facility] [address] [place] [address] Medication Refill Social History Tobacco [...] documented as of this encounter Care Teams Fuel Cell Technician Relationship Specialty Start Date End Date Trenton Duque MD [address] [facility] [address] [place] [phone] PCP - General Internal Medicine 11/10/19 04/07/22 documented as of this encounter
--- OUTSIDE RECORDS SUMMARY | 2024-07-12 14:45 | XMS_ITS | Encounter Summary ---
Author Organization [facility] Address [address] [place] [id number] Care Team Providers Care Professional Security Officer Name Role Phone Trenton Duque MD Primary Care Provider [phone] Encounter Details Date Type Department Care Team (Latest Contact Info) Description 12/26/2019 Transcribed Orders [facility] Specimens [address] [place] [address] Cecelia Davidson MD [address] [place] [address] Well woman exam with routine [...] exam NEISSERIA GONORRHEA, NAAT (LAB ORDER ONLY) ([facility] LMW Y) Routine 12/26/2019 10:44 AM EDT Well woman exam with routine gynecological exam CHLAMYDIA TRACHOMATIS, NAAT (LAB ORDER ONLY) ([facility] LMW YH) Routine 12/26/2019 10:44 AM EDT Well woman exam with routine gynecological exam documented in this encounter Results * Chlamydia trachomatis, NAAT ([facility] Y) (12/26/2019 10:44 AM EDT) Chlamydia DNA Probe Negative Negative 12/30/2019 1:12 PM EDT [facility] Comment:The Aptima Combo2 As say is not intended for the evaluation of suspected sexual abuse or for other medico-legal indications. 3 12/30/2019 1:12 PM EDT [facility] Culture CERVIX CYTOLOGIC MATERIAL / Unknown Collection / Unknown 12/26/2019 10:44 AM EDT 12/27/2019 10:44 AM EDT us Cecelia Davidson MD MICROBIOLOGY - GENERAL OR DERABLES Final Result [facility] [address] [place] [address] * Neisseria gonorrhoeae, NAAT ([facility] Y) (12/26/2019 10:44 AM EDT) Neisseria gonorrhoeae, DNA Probe Negative Negative 12/30/2019 1:12 PM EDT [facility] Comment:The Aptima Combo2 As say is not intended for the evaluation of suspected sexual abuse or for other medico-legal indications. 3 12/30/2019 1:12 PM EDT [facility] Culture CERVIX CYTOLOGIC MATERIAL / Unknown Collection / Unknown 12/26/2019 10:44 AM EDT 12/27/2019 10:44 AM EDT us Cecelia Davidson MD MICROBIOLOGY - GENERAL OR DERABLES Final Result [facility] [address] [place] [address] * HPV DNA (high risk) ([facility] Q) (12/26/2019 10:44 AM EDT) HPV DNA High Risk Not Detected Not Detected 12/29/2019 4:01 PM EDT [facility] Comment: INTERPRETATION: APTIMA [...] SUREPATH specimens, have been determined at the [facility]. 73 12/29/2019 4:01 PM EDT [facility] Cervical CERVIX CYTOLOGIC MATERIAL / Unknown Collection / Unknown 12/26/2019 10:44 AM EDT 12/27/2019 10:44 AM EDT us Cecelia Davidson MD MICROBIOLOGY - GENERAL OR DERABLES Final Result [facility] [address] [place] [address] documented in this encounter Visit Diagnoses Diagnosis Well woman exam with routine gynecological exam- Primary Routine gynecological examination documented in this encounter Additional Health Concerns Infection Onset Date Last Indicated Resolved Time R/O COVID-19 03/16/2020 03/16/2020 03/19/2020 3:29 AM EST documented as of this encounter Care Teams Professional Security Officer Relationship Specialty Start Date End Date Trenton Duque MD [address] [phone] PCP - General Internal Medicine 11/10/19 04/07/22 documented as of this encounter
--- OUTSIDE RECORDS SUMMARY | 2024-07-12 14:45 | XMS_ITS | Encounter Summary ---
Author Organization [facility] Address [address] [place] [address] Care Team Providers Care Satellite Manager Name Role Phone Trenton Duque MD Primary Care Provider [phone] Reason for Visit * Reason Comments Medication Refill Encounter Details Date Type Department Care Team (Late st Contact Info) Description 01/18/2021 Refill NEM Internal Medicine [place] [address] [place], [place] [phone] Trenton Duque MD [address] [place] [address] [place] [address] Medication Refill Social History Tobacco [...] 01/18/2021 7:37 AM EST Message from the Zipper Trimmer - MEDICATION REFILLS Time of Call: 7:37 AM Confirmed w/ Patient Preferred Pharmacy: [facility]/pharmacy #[id number] [place], [place] - [address] [facility] Last office visit: 09/10/2020 Next office visit: Visit date not found Please give us 24 hours to respond to your request. Patient was reminded to contact their preferred pharmacy for further electronic refills. Patient was encouraged to set up a [employer] account to request electronic refills in the [...] documented as of this encounter Care Teams Satellite Manager Relationship Specialty Start Date End Date Trenton Duque MD [address] [facility] [address] [place] [phone] PCP - General Internal Medicine 11/10/19 04/07/22 documented as of this encounter
== END 2024-07-12 14:16 | disposition home or self-care (01) ==
PROVIDERS: PCP Internal Medicine; Visit Provider Internal Medicine
DX: R73.01 Impaired fasting glucose (principal); E66.9 Obesity, unspecified; Z68.39 Body mass index [BMI] 39.0-39.9, adult; E28.2 Polycystic ovarian syndrome; E03.9 Hypothyroidism, unspecified; E55.9 Vitamin D deficiency, unspecified

== ENCOUNTER → 2024-07-12 13:37 | Outpatient (BNVA) | payer OTHER, SELFPAY | PROVIDERS: PCP Internal Medicine; Visit Provider Internal Medicine | DX: Z13.89 Encounter for screening for other disorder (principal) ==

== ENCOUNTER 2025-01-19 13:07 | Outpatient (AMB) | payer OTHER, SELFPAY ==
--- NOTE | 2025-01-19 13:03 | A.OFFPC_ITS ---
Intake Visit Reasons: genetic testing - Allergies No Known Allergies Allergy (Verified 01/19/25 16:53) Medication List - Last Reconciled 01/19/25 by Alisha Fay MD albuterol sulfate 90 mcg/actuation (ProAir RespiClick) 1 inh inhalation Q4-6H PRN aspirin 81 mg PO BID cetirizine (All Day Allergy (cetirizine)) 10 mg PO DAILY PRN clobetasol 0.05% 1 appl topical DAILY PRN 10 days levothyroxine 75 mcg PO DAILY meclizine 12.5 mg PO BID-QID PRN metformin ER 1,500 mg PO DAILY [mingo and D chiro with Inositol w/MTHF Folate +Vitamin D3 4x capsules ] omeprazole 20 mg PO DAILY PRN sertraline 25 mg PO DAILY Tobacco use date assessed: 01/19/25 Dental Screening Dental Screen Date: 01/19/25 Did you have a dental visit in the last 12 months?: No Did you have a dental problem in the last 6 months where you did not have access to dental care?: No Was dental information given to patient?: Patient has dentist HPI genetic testing - HPI Details 34-year-old lady with past medical history significant for hypothyroidism, mild intermittent asthma, prediabetes, PCOS, currently 15 weeks , who is requesting a referral for genetic testing through [facility]. She is currently being seen at [facility] and underwent two [facility] NIPT genetic tests which came back with ?insufficient fraction,? leaving them without any usable information. Her OB explained that the next step could be CVS or amniocentesis, but patient would like to avoid anything invasive unless it becomes absolutely necessary. After doing more research, patient learned that low fraction is a known issue with Nroeen specifically, and that other commercially available labs, especially [facility], have much higher success rates (99.9% successful attainment regardless of BMI). This is a screening test, not diagnostic, and she can follow up with her OB with the results. Due to the fact that her OB already ordered Noreen, they can not order the Myriad Genetic test for her , and is requesting to have the [facility] Genetic test form completed here at this office. [facility] Medical History Obesity (BMI 30-39.9) PCOS (polycystic ovarian syndrome) Eczema Mild intermittent asthma History of vitamin D deficiency Impaired fasting glucose Hypothyroidism Surgical History No pertinent past surgical history Family History Father No problems noted. Mother No problems noted. Social History Housing: Apartment Patient Tobacco Use Status: Never used Tobacco e-Cigarette/Vaping Use: Never Used service: No Current occupational status: employed and unemployed Cognitive needs: No Hearing needs: No Vision needs: No Questionnaire PHQ-9 Over the last 2 weeks, how often have you been bothered by any of the following problems? 1. Little interest or pleasure in doing things: not at all 2. Feeling down, depressed, or hopeless: not at all 3. Trouble falling or staying asleep, or sleeping too much: not at all 4. Feeling tired or having little energy: not at all 5. Poor appetite or overeating: not at all 6. Feeling bad about yourself - or that you are a failure or have let yourself or your family down: not at all 7. Trouble concentrating on things, such as reading the newspaper or watching television: not at all 8. Moving or speaking so slowly that other people could have noticed. Or the opposite - being so fidgety or restless that you have been moving around a lot more than usual: not at all 9. Thoughts that you would be better off or of hurting yourself in some way: not at all Total score: 0 Depression Screening Interpretation: Negative Depression Screening Done: Yes Source: Developed by Drs. Ari Woody, Karol Forrester, Jose Bee and colleagues, with an educational maria luisa from [employer]. Thrive Questionnaire Date Thrive assessed: 04/08/24 I am a: Patient What is your living situation today?: I have a steady place to live Within the past 12 months, did the food you bought not last and you didn't have the money to get more?: Never true Within the past 12 months, did you worry whether your food would run out before you got money to buy more?: Never true Do you have trouble paying for medicines?: No Do you have trouble getting transportation to medical appointments?: No Do you have trouble paying your heating and electricity bill?: No Do you have trouble taking care of your child, family member or friend?: No Do you have trouble with day-to-day activities such as bathing, preparing meals, shopping, managing finances, etc.?: No Are you currently unemployed and looking for a job?: I choose not to answer this question Are you interested in more education?: No Please select the resources that you would like help with: None Currently or been in a relationship where the following occur: No concerns reported THRIVE Score: 0 AUDIT C Alcohol Use Questionnaire (AUDIT-C) 1. How often do you have a drink containing alcohol?: Never Total Score: 0 Score Reviewed/Action Taken: Yes MARTHA-7 AMB Questionnaire MARTHA-7 Date MARTHA - 7 assessed: 01/19/25 Feeling nervous, anxious, or on edge: 0 = Not at all Not being able to stop or control worryin = Not at all Worrying too much about different things: 0 = Not at all Trouble relaxin = Not at all Being so restless that it is hard to sit still: 0 = Not at all Becoming easily annoyed or irritable: 0 = Not at all Feeling afraid as if something awful might happen: 0 = Not at all Total MARTHA-7 score (0-4 normal; 5-9 mild; 10-14 moderate; 15-21 severe): 0 Source: Developed by Drs. Ari Woody, Karol Forrester, Jose Bee and colleagues, with an educational maria luisa from [employer]. MARTHA-7 Assessment Billing MARTHA-7 Assessment Tool: MARTHA-7 Assessment 11908 Review of Systems Const All systems reviewed & are unremarkable except as noted in HPI and below Physical exam (Primary Care) Tobacco/Smoking Status: Tobacco use Status Tobacco use date assessed 01/19/25 01/19/25 13:07 Patient Tobacco Use Status Never used Tobacco 01/19/25 13:07 e-Cigarette/Vaping Use Never Used 01/19/25 13:07 PHQ-9: PHQ-9 Score PHQ-9: Total score 0 01/19/25 13:39 Depression Screening Interpretation: Negative Thrive Assessment: Date of Thrive Assessment Date Thrive assessed 04/08/24 01/19/25 13:07 Currently or been in a relationship where the following occur: No concerns reported Telehealth Telehealth Telehealth Platform: [facility] Location of provider rendering services: practice address Location of patient: address on file Patient Identification confirmed using: Name, : Yes Telehealth method: video Patient verbally consented to treatment: Yes Patient verbally consented to billing insurance company: Yes Patient informed of any privacy concerns related to visit: Yes Minutes spent on Phone/Video with Pt.: 15 Coding Level of Care Code Tele Est Pt Level 3 (13606) Diagnoses Abnormal genetic test during O28.5 Additional Codes MARTHA-7 Assessment Billing - MARTHA-7 Assessment Tool: MARTHA-7 Assessment 29704 ([id number]) Assessment & Plan Assessment & Plan (1) Abnormal genetic test during : Code(s): O28.5 - Abnormal chromosomal and genetic finding on screening of mother Plan: Pre conception/ requisition form for pre coil screening, through [facility] completed, and faxed to [phone]. Patient to follow-up with her OBGYN at [facility] with regards to the results of these tests
--- OUTSIDE RECORDS SUMMARY | 2025-01-19 18:42 | XMS_ITS ---
Author Name [facility] Unknown History of Medication Use Medication Directions Dispensed Refills Start Date End Date Stat nabumetoneTake 1 Tab let (oral) 2 times per day for 5 [id number] times per [id number] 06/12/2023 acti ve WegovyTakeNo date re cordedNo form recordedNo frequency recordedNo route recordedNo set duration recordedNo set duration amount recordedactiveNo dosage strength recordedNo dosage strength units of measure recorded active Problems Problem Status Onset Date Problem Type Date of Resoluti on Source Other asthma active ProblemAct [facility]_PHY SONE Pain in unspecified foot active 2023-06-12 ProblemAct [facility]_PHYSONE Care Team Organization Name Specialty Phone Email Start Date End Da te [facility] NO PROVIDER Primary Care 06/12/2023 12/02/2024 [facility] NO PROVIDER Primary Care 06/12/2023 [facility] 09/11/2022 10/19/2023
== END 2025-01-19 16:17 | disposition home or self-care (01) ==
LOC: HO.HMCC 13:07
PROVIDERS: PCP Internal Medicine; Visit Provider Internal Medicine
DX: O28.5 Abnormal chromosomal and genetic finding on antenatal screening of mother (principal)

== ENCOUNTER → 2025-01-19 13:07 | Outpatient (BNVA) | payer OTHER, SELFPAY | PROVIDERS: PCP Internal Medicine; Visit Provider Internal Medicine | DX: O09.512 Supervision of elderly primigravida, second trimester (principal); O28.5 Abnormal chromosomal and genetic finding on antenatal screening of mother; Z3A.15 15 weeks gestation of pregnancy | CPT/HCPCS: 96127 ==